=== PATIENT | female | born 1985 | race American Indian/Alaskan Native ===

== ENCOUNTER 2017-09-07 10:42 | Outpatient (CLI) | payer MEDICARE ==
--- NOTE | 2017-09-07 12:46 | Ultrasound Report ---
ULTRASOUND PELVIC COMPLETE ULTRASOUND TRANSVAGINAL HISTORY: Pelvic pain. COMPARISON: None. TECHNIQUE: Transabdominal and transvaginal ultrasound with color doppler interrogation. FINDINGS: Uterus: The uterus is anteverted. The uterus measures 9.1 x 4.4 x 5.8 cm. At least 3 fibroids are identified. The largest fibroid is submucosal in location in the posterior wall measuring 2.6 x 2.0 cm. An intramural fibroid in the anterior wall measures 1.4 x 1.1 cm. An intramural fibroid at the uterine fundus measures 1.8 x 1.4 cm. The cervix is unremarkable. Endometrium: 7.6 mm. There is mild anterior displacement body posterior wall fibroid. Right ovary: 4.0 x 1.9 x 2.6 cm. No focal abnormality. Left ovary: 3.3 x 1.4 x 2.2 cm. No focal abnormality. No pelvic fluid or mass is identified. Normal color doppler interrogation. IMPRESSION: Uterine fibroid disease as described above.
== END 2017-09-07 10:43 | disposition home or self-care (01) ==
LOC: US 10:42
PROVIDERS: ATTEND Obstetrics & Gynecology
DX: D25.1 Intramural leiomyoma of uterus (principal); D25.0 Submucous leiomyoma of uterus
CPT/HCPCS: 76830; 76856

== ENCOUNTER 2017-10-12 08:21 | Day surgery (SDC) | payer MEDICARE ==
[~2017-10-12 08:21] MED LIST: LACTATED RINGERS 1,000 ML IV SCH
--- NOTE | 2017-10-12 09:53 | Short Stay Summary ---
Short Stay Documentation Date of service: 10/12/17 Narrative H&P: Pt is a 32yo BF LMP 10/05/17 presents for a Hysteroscopy and D&C. She was unable to tolerate an endometrial biopsy in the office due to cervical stenosis and uterine fibroids with thickened endometrium. - History Principal diagnosis: Uterine fibroids H&P: obtained from office Past Medical History: hypertension, other (Asthma, CHF) Past Surgical History: , hernia repair, tonsillectomy Social history: no significant social history, single - Allergies and Medications Current Medications: Allergies amoxicillin [Amoxicillin] Allergy (Verified 10/07/17 11:06) Rash codeine Allergy (Verified 10/07/17 11:06) Angioedema latex Allergy (Verified 10/07/17 11:06) Rash Home Medications Medication Instructions Recorded Confirmed Last Taken Type ALBUTEROL Inhaler [Proair] 2 puff IH QID PRN 10/07/17 10/12/17 10/05/17 09:00 History Metoprolol SUCCINATE ER TAB 25 mg PO BID 10/12/17 10/12/17 10/04/17 19:00 History Active Medications Gentamicin Sulfate (Garamycin) 120 mg 1.5 mg/kg (120 mg) IV PREOP MAITE; Protocol Lactated Ringer's (Lactated Ringers) 1,000 mls @ 100 mls/hr IV DIRECT MAITE Clindamycin HCl (Cleocin 600 Mg/50 Ml) 600 mg in 50 mls @ 100 mls/hr IV PREOP NR; Protocol - Physical exam General appearance: no acute distress Integumentary: no rash HEENT: Atraumatic Lungs: Clear to auscultation Breasts: deferred Heart: Regular rate Gastrointestinal: normal Female Genitourinary: deferred Extremities: no ischemia, No edema Neurological: Normal gait, Normal speech - Brief post op/procedure progress note Date of procedure: 10/12/17 Pre-op diagnosis: 1. Menorrhagia 2. Uterine fibroids 3. Cervical stenosis Post-op diagnosis: same Procedure: 1. Hysteroscopy 2. D&C Anesthesia: MAC Findings: An enlarged uterus with stenotic cervix. Large amounts of lush endometrial tissue obtained with D&C. Surgeon: JOHANNA CLEMONS Estimated blood loss: minimal Pathology: list (endometrial curettings) Specimen disposition: to lab Condition: stable - Hospital course Hospital course: Unremarkable. - Disposition Condition at discharge: Good Disposition: DC-01 TO HOME OR SELFCARE - Discharge Diagnoses (1) Menorrhagia Status: Chronic (2) Uterine fibroid Status: Chronic Qualifiers: Uterine leiomyoma location: intramural and submucous Qualified Code(s): D25.1 - Intramural leiomyoma of uterus; D25.0 - Submucous leiomyoma of uterus (3) Cervical stenosis (uterine cervix) Status: Resolved Short Stay Discharge Plan Activity: no restrictions Diet: regular Follow up with: JENA CLEMONS MD [Primary Care Provider] - 7 Days JOHANNA CLEMONS MD [Staff Physician] - 14 Days Prescriptions: Ibuprofen [Motrin] 800 mg PO Q8HR PRN #30 tablet PRN Reason: Pain, Moderate (4-6)
[2017-10-12] MEDS ORDERED: GARAMYCIN IV ONE (10:00)
[2017-10-12] MEDS ORDERED: CLEOCIN 600 MG/50 mL 600 MG/50 ML BAG IV NR (10:00)
[2017-10-12] MEDS ORDERED: ZOFRAN IV PRN (10:09)
[2017-10-12] MEDS ORDERED: NARCAN 0.4 MG/1 ML IV PRN (10:09)
[2017-10-12] MEDS ORDERED: TORADOL IV PRN (10:09)
[2017-10-12] MEDS ORDERED: SUBLIMAZE IV PRN (10:09)
[2017-10-12] MEDS ORDERED: DEMEROL IV PRN (10:09)
--- NOTE | 2017-10-12 10:13 | Anesthesia Consultation ---
Anesthesia Consult and Med Hx Date of service: 10/12/17 - Airway Anesthetic Teeth Evaluation: Good ROM Head & Neck: Adequate Mallampati Class: Class I - Pulmonary Exam CTA: Yes - Cardiac Exam Cardiac Exam: RRR - Pre-Operative Health Status ASA Pre-Surgery Classification: ASA2 Proposed Anesthetic Plan: General - Pre-Anesthesia Comment Pre-Anesthesia Comments: patient smokes 1/2 ppd. drinks one bottle of wine daily. CHF- no limitations. takes metoprolol. Asthma: mild. last used albuterol inhaler 3 months ago - Pulmonary Hx Smoking: Yes Hx Asthma: Yes (last treated 9-10 mos ago) - Cardiovascular System Hx Hypertension: Yes (intermittant) - Central Nervous System Hx Psychiatric Problems: No - Other Systems Hx Alcohol Use: Yes (occas) Hx Cancer: No
--- NOTE | 2017-10-12 10:14 | Anesthesia Day of Surgery ---
Anesthesia Day of Surgery - Day of Surgery Patient Examined: Yes Patient H&P Reviewed: Yes Patient is NPO: Yes Beta Blockers: Yes
[2017-10-12] MEDS ORDERED: PROVENTIL IH NR (10:15)
[2017-10-12] MEDS ORDERED: PROAIR IH NR (10:15)
[2017-10-12 10:26] LABS: Hematocrit 39.1 % (30.3-42.9); Hemoglobin 12.7 gm/dl (10.1-14.3)
[2017-10-12] MEDS ORDERED: SILVER NITRATE TP ONE (10:26)
[2017-10-12] MEDS ORDERED: DIPRIVAN 10 MG/ML IV ONE (10:27)
[2017-10-12] MEDS ORDERED: SUBLIMAZE ONE (10:30)
[2017-10-12] MEDS ORDERED: XYLOCAINE MPF 2% ONE (10:57)
[2017-10-12] MEDS ORDERED: ZOFRAN ONE ×2 (10:57→11:21)
[2017-10-12] MEDS ORDERED: DILAUDID ONE (10:58)
[2017-10-12] MEDS ORDERED: GARAMYCIN/NS 120MG/100ML 120 MG/100 ML BAG IV ONE (11:00)
[2017-10-12] MEDS ORDERED: ZOFRAN IV NR (11:00)
[2017-10-12] MEDS ORDERED: GARAMYCIN 120 MG in NACL 0.9% 100 ML IV ONE (11:00)
[2017-10-12] MEDS ORDERED: VERSED IV NR (11:00)
[2017-10-12] MEDS ORDERED: ROBINUL IV NR (11:00)
[2017-10-12] MEDS ORDERED: NACL 0.9% IR ONE (11:10)
[2017-10-12] MEDS ORDERED: TORADOL ONE (11:21)
--- NOTE | 2017-10-12 11:36 | Operative Report ---
Operative Report Operative Report: PREOPERATIVE DIAGNOSIS: 1. Menorrhagia 2. Uterine fibroids 3. Cervical stenosis POSTOPERATIVE DIAGNOSIS: Same OPERATIVE PROCEDURE: 1. Hysteroscopy 2. Dilatation and curettage. SURGEON: Ken Barksdale MD ANESTHESIA: Gen. mask ANESTHESIOLOGIST: Dr. Ibanez ESTIMATED BLOOD LOSS: Less than 10 mL's FINDINGS: A 10-12 week size uterus with stenotic cervix. Large amount of lush endometrial tissue obtained with D&C. COMPLICATIONS: None COUNTS: Correct x3. PROCEDURE: After the patient was correctly identified, and after general anesthesia was administered, the patient was prepped and draped in the usual sterile fashion and placed in dorsal lithotomy position. First, the bladder was emptied using a straight catheter. Next, a speculum was placed in the vaginal vault and the anterior lip of the cervix was grasped using a single- tooth tenaculum. The cervix was stenotic, and the uterus was sounded to 12 cm. The cervical os was sequentially dilated, and the hysteroscope was introduced into the cervical canal. Visualization of endometrial cavity found lush amount of endometrial tissue,with possible endometrial polyps. The hysteroscope was then removed, sharp curettage was used obtain lush amounts of endometrial tissue which was sent to pathology. After all the endometrial tissue were removed, the procedure was considered complete. All instruments were removed from the vagina. The patient tolerated the procedure well and was transferred to the recovery room in stable condition.
[2017-10-12] MEDS ORDERED: BENADRYL ONE (11:56)
[2017-10-12] MEDS ORDERED: BENADRYL IV ONE (11:56)
[2017-10-12 12:37] VITALS: BP 115/79
--- NOTE | 2017-10-12 14:28 | Post Anesthesia Evaluation ---
- Post Anesthesia Evaluation Patient Participated: Yes Airway Patent: Yes Stable Respiratory Function: Yes Nausea/Vomiting: No Temp > 96.8F: Yes Pain Manageable: Yes Adequeate Hydration: Yes Anesthesia Complications: No
== END 2017-10-12 13:32 | disposition home or self-care (01) ==
LOC: OR 08:21
PROVIDERS: ATTEND Obstetrics & Gynecology
DX: D25.9 Leiomyoma of uterus, unspecified (principal); N88.2 Stricture and stenosis of cervix uteri; F17.200 Nicotine dependence, unspecified, uncomplicated; J45.909 Unspecified asthma, uncomplicated; I10 Essential (primary) hypertension; F17.210 Nicotine dependence, cigarettes, uncomplicated
CPT/HCPCS: 36415; 58558; 81025; 85014; 85018; 88305; A4217; J1170; J1200; J1580; J1885; J2175; J2405; J2704; J3010; J7120

== ENCOUNTER 2017-10-17 15:52 | Emergency (ER) | payer MEDICARE ==
[2017-10-17] MEDS ORDERED: NACL 0.9% 1000 ML 1,000 ML IV ONE ×2 (16:02→16:46)
[2017-10-17 16:28] LABS: Basophils % (Auto) 0.6 % (0.0-1.8); Eosinophils # (Auto) 0.1 K/mm3 (0.0-0.4); Eosinophils % (Auto) 0.9 % (0.0-4.3); Hemoglobin 13.9 gm/dl (10.1-14.3); Lymphocytes # (Auto) 2.7 K/mm3 (1.2-5.4); Lymphocytes % (Auto) 47.9 % (13.4-35.0); Mean Corpuscular HGB Conc 32 % (30-34); Mean Corpuscular Volume 80 fl (79-97); Monocytes # (Auto) 0.5 K/mm3 (0.0-0.8); Monocytes % (Auto) 8.5 % (0.0-7.3); Platelet Count 304 K/mm3 (140-440); Red Blood Count 5.39 M/mm3 (3.65-5.03); Red Cell Distribution Width 14.2 % (13.2-15.2)
[2017-10-17 16:29] LABS: INR 0.93 (0.87-1.13)
[2017-10-17 16:30] LABS: Partial Thromboplastin Time 30.7 Sec. (24.2-36.6)
[2017-10-17 16:33] LABS: Alanine Aminotransferase 13 units/L (7-56); Albumin 4.2 g/dL (3.9-5); BUN/Creatinine Ratio 14; Blood Urea Nitrogen 7 mg/dL (7-17); Calcium 9.2 mg/dL (8.4-10.2); Hemolysis Index 4; Lipase 17 units/L (13-60)
[2017-10-17 16:34] LABS: Mean Corpuscular Hemoglobin 26 pg (28-32)
[2017-10-17] MEDS ORDERED: STADOL IV PRN (16:44)
--- NOTE | 2017-10-17 16:53 | Emergency Department Report ---
ED General Adult HPI - General Chief complaint: Pain General Stated complaint: LEFT GROIN SWELLING S/P D&C Time Seen by Provider: 10/17/17 16:32 Source: patient Mode of arrival: Ambulatory Limitations: No Limitations - History of Present Illness Initial comments: 32-year-old woman is one-week status post hysteroscopy for resection of uterine leiomyomata, and presents today with history of mild recurrent bleeding, but significant abdominal pain, which has been progressive since a couple of days after surgery, worse in the left lower quadrant. She has not had any fever or chills or diaphoresis, but pain and distention is felt throughout the abdomen, and she is having some secondary discomfort in her chest, which is worse with breathing, which feels somewhat restricted. Patient's bleeding initially stopped for a day or so after the initial procedure , but then again recurring, at about a rate of a pad per day, and has increased about 2 pads yesterday. She has not had any purulence, she has no difficulty urinating, and again no fever chills or diaphoresis. Onset/Timin -: days(s), week(s) Location: abdomen, pelvis Radiation: abdomen Quality: aching, constant Consistency: constant Improves with: other (intermittent partial relief with NSAIDs) Worsens with: movement Associated Symptoms: chest pain Treatments Prior to Arrival: NSAID - Related Data Home Medications Medication Instructions Recorded Confirmed Last Taken ALBUTEROL Inhaler [Proair] 2 puff IH QID PRN 10/07/17 10/12/17 10/05/17 09:00 Metoprolol SUCCINATE ER TAB 25 mg PO BID 10/12/17 10/12/17 10/04/17 19:00 Previous Rx's Medication Instructions Recorded Last Taken Type Ibuprofen [Motrin] 800 mg PO Q8HR PRN #30 tablet 10/12/17 Unknown Rx Ondansetron [Zofran ODT TAB] 8 mg PO Q8HR #10 tab.rapdis 10/18/17 Unknown Rx Oxycodone HCl/Acetaminophen 1 each PO Q6HR PRN #20 tablet 10/18/17 Unknown Rx [Percocet 10/325 mg] Allergies Allergy/AdvReac Type Severity Reaction Status Date / Time amoxicillin [Amoxicillin] Allergy Rash Verified 10/07/17 11:06 codeine Allergy Angioedema Verified 10/07/17 11:06 latex Allergy Rash Verified 10/07/17 11:06 ED Review of Systems ROS: Stated complaint: LEFT GROIN SWELLING S/P D&C Other details as noted in HPI Constitutional: denies: chills, fever Eyes: denies: eye pain, eye discharge, vision change ENT: denies: ear pain, throat pain Respiratory: denies: cough, shortness of breath Cardiovascular: chest pain (sharp, anterior, costochondral) Endocrine: no symptoms reported Gastrointestinal: abdominal pain, nausea. denies: constipation Genitourinary: other (vaginal bleeding, one to 2 pads per day). denies: urgency , dysuria Musculoskeletal: back pain Skin: denies: rash, lesions Neurological: denies: headache, weakness, paresthesias Psychiatric: denies: anxiety, depression ED Past Medical Hx - Past Medical History Previous Medical History?: Yes Hx Hypertension: Yes (intermittant) Hx Congestive Heart Failure: Yes Hx GERD: Yes Hx Asthma: Yes (last treated 9-10 mos ago) Additional medical history: cardiomyopathy - Surgical History Past Surgical History?: Yes Hx Appendectomy: Yes Additional Surgical History: c section, abd hernia repair - Social History Smoking Status: Current Every Day Smoker Substance Use Type: Alcohol, Prescribed - Medications Home Medications: Home Medications Medication Instructions Recorded Confirmed Last Taken Type ALBUTEROL Inhaler [Proair] 2 puff IH QID PRN 10/07/17 10/12/17 10/05/17 09:00 History Ibuprofen [Motrin] 800 mg PO Q8HR PRN #30 tablet 10/12/17 Unknown Rx Metoprolol SUCCINATE ER TAB 25 mg PO BID 10/12/17 10/12/17 10/04/17 19:00 History Ondansetron [Zofran ODT TAB] 8 mg PO Q8HR #10 tab.rapdis 10/18/17 Unknown Rx Oxycodone HCl/Acetaminophen 1 each PO Q6HR PRN #20 tablet 10/18/17 Unknown Rx [Percocet 10/325 mg] ED Physical Exam - General Limitations: No Limitations General appearance: alert, in distress - Eye Eye exam: Present: normal appearance, PERRL, EOMI - ENT ENT exam: Present: normal exam - Neck Neck exam: Present: normal inspection - Respiratory Respiratory exam: Present: chest wall tenderness (costochondral tenderness with secondary pectoralis muscle, left greater than right) - Cardiovascular Cardiovascular Exam: Present: tachycardia - GI/Abdominal GI/Abdominal exam: Present: distended (moderate), tenderness (moderate), guarding (moderate). Absent: rebound - Rectal Rectal exam: Present: deferred - Extremities Exam Extremities exam: Present: normal inspection - Back Exam Back exam: Present: tenderness (minimal lumbosacral) - Neurological Exam Neurological exam: Present: alert, oriented X3 - Psychiatric Psychiatric exam: Present: normal affect, normal mood ED Course Vital Signs 10/17/17 10/17/17 10/17/17 15:56 16:44 16:53 Temperature 98.2 F 98.4 F Pulse Rate 143 H 114 H Respiratory 22 20 10 L Rate Blood Pressure 152/92 132/85 O2 Sat by Pulse 100 99 100 Oximetry 10/17/17 10/17/17 10/17/17 16:55 16:57 16:59 Temperature Pulse Rate 115 H 115 H 114 H Respiratory 15 25 H 18 Rate Blood Pressure 132/85 132/85 132/85 O2 Sat by Pulse 99 99 99 Oximetry 10/17/17 10/17/17 10/17/17 17:01 17:02 17:27 Temperature Pulse Rate 112 H 101 H Respiratory 20 18 Rate Blood Pressure 109/70 109/70 109/70 O2 Sat by Pulse 98 98 98 Oximetry 10/17/17 10/17/17 10/17/17 17:29 17:30 17:33 Temperature Pulse Rate 103 H 102 H 100 H Respiratory 18 12 14 Rate Blood Pressure 109/70 142/94 142/94 O2 Sat by Pulse 98 98 100 Oximetry 10/17/17 10/17/17 10/17/17 17:35 17:37 17:39 Temperature Pulse Rate 107 H 109 H 100 H Respiratory 20 26 H 19 Rate Blood Pressure 142/94 142/94 142/94 O2 Sat by Pulse 100 99 99 Oximetry 10/17/17 10/17/17 10/17/17 17:41 17:43 17:45 Temperature Pulse Rate 100 H 101 H 102 H Respiratory 19 21 16 Rate Blood Pressure 142/94 142/94 142/94 O2 Sat by Pulse 99 99 99 Oximetry 10/17/17 10/17/17 10/17/17 17:46 17:49 17:51 Temperature Pulse Rate 106 H 104 H 102 H Respiratory 13 17 16 Rate Blood Pressure 141/75 141/75 141/75 O2 Sat by Pulse 99 99 100 Oximetry 10/17/17 10/17/17 10/17/17 17:53 17:54 18:25 Temperature Pulse Rate 103 H 105 H 92 H Respiratory 16 13 Rate Blood Pressure 141/75 141/75 141/75 O2 Sat by Pulse 100 99 Oximetry 10/17/17 10/17/17 10/17/17 18:27 18:29 18:30 Temperature Pulse Rate 89 95 H 95 H Respiratory 22 25 H 24 Rate Blood Pressure 141/75 141/75 138/83 O2 Sat by Pulse 99 98 99 Oximetry 10/17/17 10/17/17 10/17/17 18:33 18:35 18:37 Temperature Pulse Rate 94 H 98 H 96 H Respiratory 24 18 17 Rate Blood Pressure 138/83 138/83 138/83 O2 Sat by Pulse 99 99 98 Oximetry 10/17/17 10/17/17 10/17/17 18:39 18:41 18:43 Temperature Pulse Rate 94 H 95 H 103 H Respiratory 11 L 14 12 Rate Blood Pressure 138/83 138/83 138/83 O2 Sat by Pulse 97 98 98 Oximetry 10/17/17 10/17/17 10/17/17 18:45 18:47 18:49 Temperature Pulse Rate Respiratory 13 24 18 Rate Blood Pressure 126/68 126/68 126/68 O2 Sat by Pulse 98 97 98 Oximetry 10/17/17 10/17/17 10/17/17 18:51 18:53 18:55 Temperature Pulse Rate Respiratory 13 12 22 Rate Blood Pressure 126/68 126/68 126/68 O2 Sat by Pulse 98 99 96 Oximetry 10/17/17 10/17/17 10/17/17 18:57 18:59 19:00 Temperature Pulse Rate Respiratory 23 21 17 Rate Blood Pressure 126/68 126/68 125/78 O2 Sat by Pulse 97 96 98 Oximetry 10/17/17 10/17/17 10/17/17 19:03 19:05 19:07 Temperature Pulse Rate Respiratory 20 18 13 Rate Blood Pressure 125/78 125/78 125/78 O2 Sat by Pulse 98 98 100 Oximetry 10/17/17 10/17/17 10/17/17 19:09 19:11 19:13 Temperature Pulse Rate Respiratory 20 14 11 L Rate Blood Pressure 125/78 125/78 125/78 O2 Sat by Pulse 98 97 99 Oximetry 10/17/17 10/17/17 10/17/17 19:15 19:17 19:19 Temperature Pulse Rate Respiratory 14 17 13 Rate Blood Pressure 134/81 134/81 134/81 O2 Sat by Pulse 100 99 99 Oximetry 10/17/17 10/17/17 10/17/17 19:21 19:25 19:30 Temperature Pulse Rate Respiratory 18 9 L 15 Rate Blood Pressure 134/81 134/81 132/82 O2 Sat by Pulse 98 96 100 Oximetry 10/17/17 10/17/17 10/17/17 19:35 19:41 19:45 Temperature Pulse Rate Respiratory 10 L 15 21 Rate Blood Pressure 132/82 132/82 146/95 O2 Sat by Pulse 99 100 99 Oximetry 10/17/17 10/17/17 10/17/17 19:51 19:55 20:00 Temperature Pulse Rate Respiratory 12 12 17 Rate Blood Pressure 146/95 146/95 151/96 O2 Sat by Pulse 100 100 98 Oximetry 10/17/17 10/17/17 10/17/17 20:05 20:11 20:15 Temperature Pulse Rate Respiratory 19 17 13 Rate Blood Pressure 151/96 151/96 154/101 O2 Sat by Pulse 100 99 100 Oximetry 10/17/17 10/17/17 10/17/17 20:21 20:25 20:30 Temperature Pulse Rate Respiratory 10 L 16 17 Rate Blood Pressure 154/101 154/101 144/102 O2 Sat by Pulse 99 99 99 Oximetry 10/17/17 10/17/17 10/17/17 20:35 20:41 20:45 Temperature Pulse Rate Respiratory 13 16 14 Rate Blood Pressure 144/102 144/102 145/93 O2 Sat by Pulse 99 98 100 Oximetry 10/17/17 10/17/17 10/17/17 20:51 21:07 21:11 Temperature Pulse Rate Respiratory 12 10 L 18 Rate Blood Pressure 145/93 145/93 145/93 O2 Sat by Pulse 99 100 98 Oximetry 10/17/17 10/17/17 10/17/17 21:15 21:21 21:25 Temperature Pulse Rate Respiratory 12 18 15 Rate Blood Pressure 157/88 157/88 157/88 O2 Sat by Pulse 100 96 97 Oximetry 10/17/17 10/17/17 10/17/17 21:31 21:35 21:41 Temperature Pulse Rate Respiratory 13 8 L 18 Rate Blood Pressure 130/72 130/72 130/72 O2 Sat by Pulse 99 100 98 Oximetry 10/17/17 10/17/17 10/17/17 21:45 21:51 21:55 Temperature Pulse Rate Respiratory 9 L 17 15 Rate Blood Pressure 140/71 140/71 140/71 O2 Sat by Pulse 99 97 96 Oximetry 10/17/17 10/17/17 10/17/17 22:00 22:05 22:11 Temperature Pulse Rate Respiratory 18 13 16 Rate Blood Pressure 133/76 133/76 133/76 O2 Sat by Pulse 98 99 99 Oximetry 10/17/17 10/17/17 10/17/17 22:15 22:21 22:25 Temperature Pulse Rate Respiratory 24 20 10 L Rate Blood Pressure 133/76 133/76 133/76 O2 Sat by Pulse 97 99 97 Oximetry 10/17/17 10/17/17 10/17/17 22:31 22:35 22:41 Temperature Pulse Rate Respiratory 15 12 16 Rate Blood Pressure 133/76 133/76 133/76 O2 Sat by Pulse 97 99 95 Oximetry 10/17/17 10/17/17 10/17/17 22:45 22:51 22:55 Temperature Pulse Rate Respiratory 14 16 12 Rate Blood Pressure 118/82 118/82 118/82 O2 Sat by Pulse 98 98 95 Oximetry 10/17/17 10/17/17 10/17/17 23:00 23:05 23:09 Temperature Pulse Rate Respiratory 13 17 11 L Rate Blood Pressure 128/76 128/76 128/76 O2 Sat by Pulse 99 98 98 Oximetry 10/17/17 10/17/17 10/17/17 23:11 23:15 23:21 Temperature Pulse Rate Respiratory 16 15 13 Rate Blood Pressure 128/76 128/76 141/84 O2 Sat by Pulse 97 98 99 Oximetry 10/17/17 10/17/17 10/17/17 23:25 23:30 23:35 Temperature Pulse Rate Respiratory 17 14 17 Rate Blood Pressure 141/84 143/80 143/80 O2 Sat by Pulse 96 98 99 Oximetry 10/17/17 10/17/17 10/17/17 23:41 23:45 23:51 Temperature Pulse Rate Respiratory 12 16 15 Rate Blood Pressure 143/80 143/80 129/60 O2 Sat by Pulse 98 98 99 Oximetry 10/17/17 10/18/17 10/18/17 23:55 00:01 00:05 Temperature Pulse Rate Respiratory 14 18 14 Rate Blood Pressure 129/60 121/73 121/73 O2 Sat by Pulse 99 97 97 Oximetry 10/18/17 10/18/17 10/18/17 00:11 00:15 00:21 Temperature Pulse Rate Respiratory 15 13 15 Rate Blood Pressure 121/73 121/73 121/73 O2 Sat by Pulse 96 97 99 Oximetry 10/18/17 10/18/17 00:25 00:30 Temperature Pulse Rate Respiratory 14 13 Rate Blood Pressure 121/73 129/93 O2 Sat by Pulse 98 99 Oximetry - Reevaluation(s) Reevaluation #1: 10/18/17 01:54 Patient concerned after multiple evaluations, including pelvic and transvaginal ultrasound, lab work surgeon for inflammation, urinalysis, and CT scanning of the abdomen and pelvis with IV contrast, none of which showed any major pathology, signs of infection, or signs of bleeding. Patient did have signs of perhaps mild adynamic ileus, but was nonobstructive. Findings were discussed with it architect garage construction equipment mechanic, who felt that this was relatively benign examination , and the patient pain can be further evaluated in the office. Patient is concerned about continuing pain, and on repeat examination at this time, I still find the patient's abdomen is essentially soft, but she has bilateral tenderness across her lower abdomen, worse on the left side than on the right, without rebound. Bowel sounds are active. Laboratory results and radiology results were reviewed, and no additional pathology appears evident. Patient is stable for discharge, will be discharged with pain medication and nausea medication, to follow later in the office this morning when the office opens up. - Consultations Consultation #1: 10/18/17 00:25 Patient's findings discussed with on-call it architect, Dr. Gonzalez, after all lab results were back and as well as CT scan and urinalysis, fills with benign findings, the patient is stable to go home with analgesia, but for early follow- up with the clinic in the morning, and to call the morning for expedited follow- up. Findings discussed with patient, who reports that she drove herself here, and will contact a friend to come drive her home, this patient has currently been medicated with narcotics. ED Medical Decision Making - Lab Data Result diagrams: 10/17/17 16:07 10/17/17 16:07 - EKG Data -: EKG Interpreted by Me (nonspecific tracing, sinus tachycardia, prolonged QT interval of 507 ms cor) EKG shows normal: sinus rhythm Rate: tachycardia - EKG Data When compared to previous EKG there are: previous EKG unavailable - Radiology Data Radiology results: report reviewed CT scan shows adynamic ileus with small nonobstructed fluid-filled bowel loops, but no other significant finding. Pelvic and transvaginal ultrasound again showed pre-existing leiomyomata, but no significant blood or fluid accumulation, and no intra-abdominal pelvic fluid. Left ovarian follicular changes were noted . - Medical Decision Making Patient has unexplained left lower abdominal pain progressive for the past 5 or 6 days since she has had hysteroscopy. Ultrasound examination, laboratory evaluation, CT evaluation, and urinalysis are all normal, and source is not known. Since patient is stable, it architect feels patient is stable for discharge, but recommends early follow-up in the clinic in this coming morning. Patient will be discharged home to the care of her friend medicated for discomfort, and will be discharged with analgesia prescriptions. - Differential Diagnosis persistent vaginal bleeding, intra-abdominal hemorrhage, endometritis Critical Care Time: No Critical care attestation.: If time is entered above; I have spent that time in minutes in the direct care of this critically ill patient, excluding procedure time. ED Disposition Clinical Impression: Status post hysteroscopy Uterine fibroid Qualifiers: Uterine leiomyoma location: intramural and submucous Qualified Code(s): D25.1 - Intramural leiomyoma of uterus Abdominal pain Qualifiers: Abdominal location: left lower quadrant Qualified Code(s): R10.32 - Left lower quadrant pain Disposition: DC-01 TO HOME OR SELFCARE Is pt being admited?: No Does the pt Need Aspirin: No Condition: Stable Instructions: Abdominal Pain (ED) Additional Instructions: We have spoken with on-call it architect phil, and he recommends discharge home tonight, with pain medication, and we have given a dose of medicine before your discharge. Their recommendation is to follow-up with Dr. Barksdale in the office this coming morning when the office opens up. Give the office a call first thing, told him that you were seen in the emergency department, and that arrangements should be made for you to be seen by your doctor today. We have given a prescription for medicine for additional pain, wanted to rest quietly, drink plenty of fluids, and he may also take additional medication for nausea as well. Prescriptions: Ondansetron [Zofran ODT TAB] 8 mg PO Q8HR #10 tab.rapdis Oxycodone HCl/Acetaminophen [Percocet 10/325 mg] 1 each PO Q6HR PRN #20 tablet PRN Reason: Pain Referrals: JENA BARKSDALE MD [Primary Care Provider] - 3-5 Days JOHANNA BARKSDALE MD [Staff Physician] - 3-5 Days Time of Disposition: 00:15
[2017-10-17] MEDS ORDERED: PHENERGAN PO ONE (17:00)
[2017-10-17] MEDS ORDERED: ZOFRAN IV ONE ×2 (17:31→21:20)
[2017-10-17] MEDS: MORPHINE IV PRN ×5 (18:01→21:23)
--- NOTE | 2017-10-17 19:25 | Ultrasound Report ---
FINAL REPORT EXAM: US PELVIC COMPLETE HISTORY: abd pain, s/p hysteroscopy TECHNIQUE: Transabdominal and transvaginal sonography of the pelvis. Duplex Doppler performed. PRIORS: None. FINDINGS: The uterus measures 9.3 x 4.5 x 5.9 cm, has heterogeneous echotexture and contains hypoechoic fibroids x3, largest noted in posterior corpus region measuring 3.5 x 2.7 x 3.4 cm. Next largest fibroid noted in fundal region measuring 1.8 x 1.1 x 1.5 cm. Additional fibroid noted in anterior corpus region measuring 1.3 x 1.1 x 2.1 cm. Small hyperechoic focus and possible calcification noted in mid posterior corpus subjacent to endometrium. The endometrial stripe is within normal limits and measures 6 mm in AP dimension. The right ovary measures 3.7 x 2.1 x 2.3 cm and is grossly unremarkable. The left ovary measures 4.0 x 2.2 x 1.8 cm, demonstrates probable follicular change measuring 2 cm and is grossly unremarkable. Duplex Doppler shows appropriate blood flow present in the ovaries bilaterally. No adnexal masses or significant free peritoneal fluid. IMPRESSION: 1. Leiomyomatous change in the uterus. 2. Findings compatible with follicular change in the left ovary. 3. Otherwise, unremarkable.
--- NOTE | 2017-10-17 19:28 | Ultrasound Report ---
FINAL REPORT EXAM: US TRANSVAGINAL HISTORY: abd pain, s/p hysteroscopy TECHNIQUE: Transabdominal and transvaginal sonography of the pelvis. PRIORS: None. FINDINGS: The uterus measures 9.3 x 4.5 x 5.9 cm, has heterogeneous echotexture and contains hypoechoic fibroids x3, largest noted in posterior corpus region measuring 3.5 x 2.7 x 3.4 cm. Next largest fibroid noted in fundal region measuring 1.8 x 1.1 x 1.5 cm. Additional fibroid noted in anterior corpus region measuring 1.3 x 1.1 x 2.1 cm. Small hyperechoic focus and possible calcification noted in mid posterior corpus subjacent to endometrium. The endometrial stripe is within normal limits and measures 6 mm in AP dimension. The right ovary measures 3.7 x 2.1 x 2.3 cm and is grossly unremarkable. The left ovary measures 4.0 x 2.2 x 1.8 cm, demonstrates probable follicular change measuring 2 cm and is grossly unremarkable. Duplex Doppler shows appropriate blood flow present in the ovaries bilaterally. No adnexal masses or significant free peritoneal fluid. IMPRESSION: 1. Leiomyomatous change in the uterus. 2. Findings compatible with follicular change in the left ovary. 3. Otherwise, unremarkable.
--- NOTE | 2017-10-17 21:34 | Cat Scan Report ---
FINAL REPORT EXAM: CT ABDOMEN PELVIS W CON HISTORY: LLQ pain, recent hysteroscopy, stable pelvic US TECHNIQUE: Spiral CT scanning of the abdomen and pelvis after the uneventful administration of IV contrast. Multiplanar reformations. 100 mL Omnipaque IV. PRIORS: None. FINDINGS: Abdomen: Visualized lung bases show mild, dependent atelectasis bilaterally. No radiopaque gallstones. Liver without significant abnormality. Spleen without significant abnormality. Pancreas without significant abnormality. Kidneys without significant abnormality. Adrenal glands without significant abnormality. Pelvis: Multiple loops of prominent small bowel and colon containing gas and fluid without discrete transition point. Mild diverticular change in the proximal descending colon. Appendix within normal limits. Trace amount of nonspecific, free fluid in the pelvis. No discrete abscess. Abdominal aorta non-aneurysmal. Somewhat lobular uterine margins suggesting leiomyomatous change. Ovoid, cystic focus in left ovary measuring approximately 2 cm. IMPRESSION: 1. Nonspecific bowel gas pattern suggesting adynamic ileus, which may be associated with nonspecific postinflammatory change, including diarrhea or enteritis. Correlate clinically. 2. Possible physiologic cystic change in the left ovary, and sequelae of ovarian follicle or cyst rupture.
[2017-10-17 23:54] LABS: Bacteria,Urine 1+ /HPF (Negative); Bilirubin,Urine NEG (Negative); Blood,Urine MOD (Negative); Color,Urine Yellow (Yellow); Mucus,Urine FEW /HPF; Protein,Urine <15 mg/dL mg/dL (Negative); Urobilinogen,Urine < 2.0 mg/dL (<2.0); WBC,Urine < 1.0 /HPF (0.0-6.0)
[2017-10-18] MEDS ORDERED: ZOFRAN ONE (01:30)
[2017-10-18] MEDS: MORPHINE IV PRN (01:31)
[2017-10-18] MEDS ORDERED: ZOFRAN IV ONE (02:13)
[2017-10-18 02:22] VITALS: BP 133/90
== END 2017-10-18 02:24 | disposition home or self-care (01) ==
LOC: ED 15:52
DX: N99.820 Postprocedural hemorrhage of a genitourinary system organ or structure following a genitourinary system procedure (principal); D25.1 Intramural leiomyoma of uterus; R10.32 Left lower quadrant pain; R07.89 Other chest pain; I10 Essential (primary) hypertension; I11.0 Hypertensive heart disease with heart failure; I50.9 Heart failure, unspecified; K21.9 Gastro-esophageal reflux disease without esophagitis; J45.909 Unspecified asthma, uncomplicated; F17.200 Nicotine dependence, unspecified, uncomplicated; Z98.890 Other specified postprocedural states; Z90.49 Acquired absence of other specified parts of digestive tract; Z88.1 Allergy status to other antibiotic agents; Z88.5 Allergy status to narcotic agent; Z91.040 Latex allergy status
CPT/HCPCS: 36415; 74177; 76830; 76856; 80053; 81001; 83690; 85025; 85610; 85730; 86850; 86900; 86901; 93005; 93010; 96361; 96374; 96375; 96376; 99284; J2270; J2405; J7030; Q9967; J0595; Q0169

== ENCOUNTER 2017-12-08 02:58 | Emergency (ER) | payer MEDICARE ==
[2017-12-08 03:21] VITALS: BP 128/71
[2017-12-08 03:54] LABS: Basophils # (Auto) 0.1 K/mm3 (0.0-0.1); Basophils % (Auto) 1.2 % (0.0-1.8); Eosinophils # (Auto) 0.1 K/mm3 (0.0-0.4); Eosinophils % (Auto) 2.4 % (0.0-4.3); Hematocrit 37.6 % (30.3-42.9); Lymphocytes # (Auto) 2.1 K/mm3 (1.2-5.4); Lymphocytes % (Auto) 44.3 % (13.4-35.0); Mean Corpuscular HGB Conc 32 % (30-34); Mean Corpuscular Hemoglobin 26 pg (28-32); Mean Corpuscular Volume 81 fl (79-97); Monocytes # (Auto) 0.6 K/mm3 (0.0-0.8); Monocytes % (Auto) 12.4 % (0.0-7.3); Platelet Count 271 K/mm3 (140-440); Red Blood Count 4.62 M/mm3 (3.65-5.03); Red Cell Distribution Width 14.7 % (13.2-15.2)
[2017-12-08 04:05] LABS: Bilirubin,Urine NEG (Negative); Blood,Urine SM (Negative); Color,Urine Yellow (Yellow); Mucus,Urine FEW /HPF; Protein,Urine <15 mg/dL mg/dL (Negative); Urobilinogen,Urine < 2.0 mg/dL (<2.0)
[2017-12-08 04:12] LABS: Alanine Aminotransferase 11 units/L (7-56); Albumin 3.9 g/dL (3.9-5); BUN/Creatinine Ratio 22; Blood Urea Nitrogen 11 mg/dL (7-17); Calcium 8.5 mg/dL (8.4-10.2); Hemolysis Index 3
[2017-12-08 04:17] LABS: HCG Qualitative,Urine Positive (Negative)
== END 2017-12-08 08:32 | disposition left against medical advice (07) ==
LOC: ED 02:58
DX: O26.891 Other specified pregnancy related conditions, first trimester (principal); R10.9 Unspecified abdominal pain; J45.909 Unspecified asthma, uncomplicated; K21.9 Gastro-esophageal reflux disease without esophagitis; I10 Essential (primary) hypertension; F17.200 Nicotine dependence, unspecified, uncomplicated; Z90.49 Acquired absence of other specified parts of digestive tract; Z88.5 Allergy status to narcotic agent; Z91.040 Latex allergy status; Z88.1 Allergy status to other antibiotic agents; Z3A.01 Less than 8 weeks gestation of pregnancy; Z53.21 Procedure and treatment not carried out due to patient leaving prior to being seen by health care provider
CPT/HCPCS: 36415; 80053; 81001; 81025; 85025

== ENCOUNTER 2018-02-18 13:59 | Emergency (ER) | payer MEDICARE ==
[2018-02-18 14:58] VITALS: BP 113/50
[2018-02-18 15:53] LABS: HCG Qualitative,Urine Positive (Negative)
[2018-02-18 15:56] LABS: Bilirubin,Urine NEG (Negative); Blood,Urine SM (Negative); Color,Urine Yellow (Yellow); Mucus,Urine FEW /HPF; Protein,Urine <15 mg/dL mg/dL (Negative); Urobilinogen,Urine < 2.0 mg/dL (<2.0)
== END 2018-02-18 18:13 ==
LOC: ED 13:59
DX: R10.2 Pelvic and perineal pain (principal); Z53.21 Procedure and treatment not carried out due to patient leaving prior to being seen by health care provider
CPT/HCPCS: 81001; 81025

== ENCOUNTER 2018-06-19 05:18 | Outpatient (CLI) | payer MEDICARE ==
[2018-06-19 06:26] LABS: Bacteria,Urine 1+ /HPF (Negative); Bilirubin,Urine NEG (Negative); Blood,Urine MOD (Negative); Color,Urine Straw (Yellow); Mucus,Urine FEW /HPF; Protein,Urine <15 mg/dL mg/dL (Negative); Urobilinogen,Urine < 2.0 mg/dL (<2.0)
[2018-06-19 07:45] VITALS: BP 139/67
--- NOTE | 2018-06-19 21:10 | Event Note ---
Date: 06/19/18 Triage Note 06/19/18: 33 year old at 33 weeks, 3 days gestation presented to L&D triage complaining of cough, chest pain, wheezing, and back pain. Patient is a patient of Dr. Barksdale at [facility] and she states she has been receiving regular care. She states she is also being followed by [facility]. Patient denies sick contacts. She reports body aches but denies fever or chills. Patient reports active movement. She denies falls or abdominal trauma. She denies VB or LOF. Patient is ill appearing, mildly tachycardic. NST reactive, category 1. No contractions noted. Patient sent to ED in wheelchair to be evaluated for chest pain, wheezing, tachycardia and to have flu swab done. Advised patient to follow up with Dr. Barksdale this week.
== END 2018-06-19 09:09 | disposition home or self-care (01) ==
LOC: TRG 05:18
PROVIDERS: ATTEND Obstetrics & Gynecology
DX: O26.893 Other specified pregnancy related conditions, third trimester (principal); O99.513 Diseases of the respiratory system complicating pregnancy, third trimester; J45.909 Unspecified asthma, uncomplicated; R10.9 Unspecified abdominal pain; R07.9 Chest pain, unspecified; Z90.89 Acquired absence of other organs; Z90.49 Acquired absence of other specified parts of digestive tract; Z87.891 Personal history of nicotine dependence; Z3A.33 33 weeks gestation of pregnancy
CPT/HCPCS: 81001; 87086

== ENCOUNTER 2018-07-21 09:57 | Inpatient (IN) | payer MEDICARE ==
[2018-07-21] MEDS ORDERED: BICITRA PO ONE (11:01)
[2018-07-21] MEDS ORDERED: REGLAN IV ONE (11:01)
[2018-07-21] MEDS ORDERED: PEPCID IV ONE (11:01)
--- NOTE | 2018-07-21 11:03 | History and Physical Report ---
History of Present Illness Date of examination: 07/21/18 Date of admission: 07/21/18 09:57 Chief complaint: Scheduled C Section History of present illness: Pt is a 33yo BF EDC 08/04/18; EGA 38 0/7 weeks presents for Repeat C Section per [facility] due to CHF. She received care at [facility] since 8 weeks and co-managed by [facility] for Previous C Section, Morbid Obesity and CHF (followed by Cardiology). records are available and GBS is Negative. Past History Past Medical History: asthma, heart disease (CHF), hypertension, GERD Past Surgical History: tonsillectomy, section, other (hernia repair) Family/Genetic History: heart disease, hypertension, stroke Social history: no significant social history, single - Obstetrical History Expected Date of Delivery: 08/04/18 Actual Gestation: 38 Week(s) 0 Day(s) : 2 Medications and Allergies Allergies Allergy/AdvReac Type Severity Reaction Status Date / Time amoxicillin [Amoxicillin] Allergy Rash Verified 06/19/18 10:16 codeine Allergy Angioedema Verified 06/19/18 10:16 latex Allergy Rash Verified 06/19/18 10:16 Home Medications Medication Instructions Recorded Confirmed Last Taken Type Metoprolol SUCCINATE ER TAB 25 mg PO BID 10/12/17 07/21/18 07/19/18 09:00 History 1 Ferrous Sulfate [Feosol 325 MG tab] 325 mg PO BID #60 tablet 07/21/18 Unknown Rx HYDROcodone/APAP 5-325 [[place] 1 each PO Q6HR PRN #30 tablet 07/21/18 Unknown Rx 5/325] Ibuprofen [Motrin] 800 mg PO Q8HR PRN #30 tablet 07/21/18 Unknown Rx Pnv No.95/Ferrous Fum/Folic AC 1 each PO DAILY #30 tablet 07/21/18 Unknown Rx [Prenavite Tablet] Vit-Fe Fumar-FA [ 1 tab PO QDAY 07/21/18 07/21/18 07/20/18 23:00 History Vitamin] Review of Systems All systems: negative - Physical Exam Breasts: Positive: deferred Cardiovascular: Regular rate Lungs: Positive: Clear to auscultation Abdomen: Positive: normal appearance Genitourinary (Female): Positive: normal external genitalia Uterus: Positive: enlarged Extremities: Positive: normal - Obstetrical FHR: category 1 Uterine Contraction Monitor Mode: External Uterine Contraction Pattern: Absent Results Result Diagrams: 07/21/18 11:30 All other labs normal. Assessment and Plan - Patient Problems (1) 38 weeks gestation of Onset Date: 07/21/18 Current Visit: Yes Status: Acute (2) CHF (congestive heart failure) Onset Date: 07/21/18 Current Visit: Yes Status: Acute Qualifiers: Heart failure chronicity: chronic (3) Chronic hypertension Onset Date: 07/21/18 Current Visit: Yes Status: Chronic (4) Uterine fibroid in Onset Date: 07/21/18 Current Visit: Yes Status: Chronic
[2018-07-21] MEDS ORDERED: GENTAMICIN IV SCH (11:15)
[2018-07-21] MEDS ORDERED: NACL 0.9% IV SCH (11:15)
[2018-07-21] MEDS ORDERED: GENTAMICIN 120 MG in NACL 0.9% 100 ML IV SCH (11:18)
--- NOTE | 2018-07-21 11:39 | Anesthesia Day of Surgery ---
Anesthesia Day of Surgery - Day of Surgery Patient Examined: Yes Patient H&P Reviewed: Yes Patient is NPO: Yes Beta Blockers: No
[2018-07-21] MEDS: LACTATED RINGERS 1,000 ML IV SCH ×2 (11:42→12:12)
--- NOTE | 2018-07-21 11:44 | Anesthesia Consultation ---
Anesthesia Consult and Med Hx Date of service: 07/21/18 - Airway Anesthetic Teeth Evaluation: Good ROM Head & Neck: Adequate Mental/Hyoid Distance: Adequate Mallampati Class: Class III Intubation Access Assessment: Good - Pulmonary Exam CTA: Yes - Cardiac Exam Cardiac Exam: No Murmur Anesthetic Concerns: ASA II hostory of CHF, HTN and Asthma - Pre-Operative Health Status ASA Pre-Surgery Classification: ASA3 Proposed Anesthetic Plan: Spinal - Pulmonary Hx Smoking: Yes Hx Asthma: Yes (pt used neb machine earlier today) SOB: No COPD: No Home Oxygen Therapy: No Hx Pneumonia: No Hx Sleep Apnea: No - Cardiovascular System Hx Hypertension: No ( and CHF ) Hx Coronary Artery Disease: No Hx Heart Attack/AMI: No Hx Percutaneous Transluminal Coronary Angioplasty (PTCA): No Hx Cardia Arrhythmia: No Hx Internal Defibrillator: No Hx Valvular Heart Disease: No Hx Heart Murmur: No Hx Peripheral Vascular Disease: No - Central Nervous System Hx Seizures: No Hx Psychiatric Problems: No - Endocrine Hx Renal Disease: No Hx End Stage Renal Disease: No Hx Cirrhosis: No Hx Liver Disease: No Hx Insulin Dependent Diabetes: No Hx Non-Insulin Dependent Diabetes: No Hx Thyroid Disease: No Hx Hypothyroidism: No Hx Hyperthyroidism: No - Hematic Hx Anemia: No Hx Sickle Cell Disease: No - Other Systems Hx Alcohol Use: No Hx Substance Use: No Hx Cancer: No Hx Obesity: No
--- NOTE | 2018-07-21 11:44 | Anesthesia Consultation ---
Anesthesia Consult and Med Hx - Airway Anesthetic Teeth Evaluation: Good ROM Head & Neck: Adequate Mental/Hyoid Distance: Adequate Mallampati Class: Class III Intubation Access Assessment: Probably Good - Pulmonary Exam CTA: Yes - Cardiac Exam Cardiac Exam: No Murmur - Pre-Operative Health Status ASA Pre-Surgery Classification: ASA3 Proposed Anesthetic Plan: Spinal - Pulmonary Hx Smoking: Yes Hx Asthma: Yes (pt used neb machine earlier today) - Cardiovascular System Hx Hypertension: No - Central Nervous System Hx Seizures: No Hx Psychiatric Problems: No - Endocrine Hx Renal Disease: No Hx Hypothyroidism: No Hx Hyperthyroidism: No - Hematic Hx Anemia: No Hx Sickle Cell Disease: No - Other Systems Hx Alcohol Use: No Hx Cancer: No
[2018-07-21 11:51] LABS: Basophils % (Auto) 0.3 % (0.0-1.8); Eosinophils # (Auto) 0.1 K/mm3 (0.0-0.4); Eosinophils % (Auto) 0.8 % (0.0-4.3); Hemoglobin 10.9 gm/dl (10.1-14.3); Lymphocytes # (Auto) 1.5 K/mm3 (1.2-5.4); Lymphocytes % (Auto) 20.4 % (13.4-35.0); Mean Corpuscular HGB Conc 31 % (30-34); Mean Corpuscular Volume 77 fl (79-97); Monocytes # (Auto) 0.8 K/mm3 (0.0-0.8); Monocytes % (Auto) 11.5 % (0.0-7.3); Platelet Count 265 K/mm3 (140-440); Red Blood Count 4.58 M/mm3 (3.65-5.03); Red Cell Distribution Width 16.9 % (13.2-15.2)
[2018-07-21] MEDS ORDERED: PITOCin/NS 20 UNIT/1000ML DRIP 20 UNITS/1,000 ML BAG IV SCH ×2 (12:00→15:00)
[2018-07-21] MEDS ORDERED: CLEOCIN 600 MG/50 mL 600 MG/50 ML BAG IV NR (12:00)
[2018-07-21] MEDS ORDERED: NACL 0.9% IR ONE (13:00)
[2018-07-21] MEDS ORDERED: WATER FOR IRRIG STERILE IR ONE (13:00)
[2018-07-21] MEDS ORDERED: SUBLIMAZE ONE ×2 (13:26→13:41)
[2018-07-21] MEDS ORDERED: ZOFRAN ONE (13:29)
[2018-07-21] MEDS ORDERED: NEO SYNEPHRINE/NS Syringe(OR USE) IV ONE (13:30)
[2018-07-21] MEDS ORDERED: DILAUDID ONE (13:30)
--- NOTE | 2018-07-21 14:06 | Operative Report ---
Operative Report Operative Report: Date of procedure: 07/21/2018 Pre-operative diagnosis: 1. Intrauterine at 38-0/7 weeks 2. Previo us 3. Uterine fibroids 4. Congestive heart failure 5. Chronic hypertension Post-operative diagnosis: Same Procedure name(s): Repeat low transverse section Surgeon: Ken Barksdale MD Energy Conservation Representative: None Anesthesia: Spinal anesthesia by Dr. [place] EBL: 500 mls Findings: A 2895 g female Apgars 8 at 1 minute and 9 at 5 minutes. Clear amniotic fluid. Fibroid uterus. Normal tubes and ovaries bilaterally. Procedure: After the patient was prepped and draped in usual sterile fashion, and after satisfactory level of epidural anesthesia was obtained, the skin knife was used to make a transverse skin incision through the previous skin scar. The incision was excised down to layer of the fascia, which was nicked in the midline and extended laterally using the Bovie cautery. The rectus muscles were dissected off the rectus fascia both superiorly and inferiorly. The rectus bellies in the midline, and the peritoneum was entered under direct visualization. The peritoneal incision was extended superiorly and inferiorly. A bladder flap was created and the bladder blade was then placed. The uterus was scored in a curvilinear linear fashion, entered in the midline revealing clear amniotic fluid. The infant's head was delivered onto the surgical field with aid of a vacuum, and the oropharynx and nasopharynx were bulb suctioned. Nuchal cord 1 easily reduced. The rest of the infant's body was delivered, cord was doubly clamped and cut and the infant was handed to the waiting respiratory team. Cord blood was then obtained. The placenta was manually removed from the uterus, but the uterus could not be removed from its normal anatomical position. After gentle uterine lavage, the incision was inspected and found to be without extensions. It was then closed in 2 layers using 0 Vicryl suture in a running interlocking fashion, the second layer imbricating the first. After good hemostasis was achieved, copious amounts or irrigation was performed, and the gutters were suctioned free of blood and blood clots. The Tisseel sealant was sprayed across the uterine incision. After excellent hemostasis assured, the peritoneum was re-approximated using 3-0 Vicryl suture in a running interlocking fashion, and then the rectus muscles were re- approximated using 3-0 Vicryl suture in a [id number] configuration. The fascia was then re-approximated using 0 Vicryl suture in running interlocking fashion. The subcutaneous layer was made hemostatic using Bovie cautery, the Tisseel sealant was sprayed across the fascial incision and the skin edges re- approximated using 4-0 Vicryl suture in a sub-cuticular fashion. Patient tolerated the procedure well was transported to recovery in stable condition.
[2018-07-21] MEDS ORDERED: NARCAN 0.4 MG/1 ML IV PRN ×2 (14:30→15:30)
[2018-07-21] MEDS ORDERED: ZOFRAN IV PRN ×2 (14:30→15:30)
[2018-07-21] MEDS ORDERED: PHENERGAN PR PRN (14:30)
[2018-07-21] MEDS ORDERED: PHENERGAN PO PRN (14:30)
[2018-07-21] MEDS ORDERED: TYLENOL PO PRN (14:32)
[2018-07-21] MEDS ORDERED: MARCAINE 0.25% INFILTRATI ONE ×2 (14:43→14:47)
[2018-07-21] MEDS ORDERED: MARCAINE-EPI/PF 0.5%-1:200,000 INFILTRATI ONE (14:46)
[2018-07-21] MEDS: DILAUDID IV PRN ×5 (14:48→15:24)
[2018-07-21] MEDS ORDERED: SODIUM CHLORIDE FLUSH SYRINGE 10 ML IV NR (15:00)
[2018-07-21] MEDS ORDERED: SODIUM CHLORIDE FLUSH SYRINGE 10 ML IV PRN (15:00)
[2018-07-21] MEDS ORDERED: D5LR 1,000 ML IV SCH (15:00)
[2018-07-21] MEDS ORDERED: TUCKS PAD TP PRN (15:30)
[2018-07-21] MEDS ORDERED: BENADRYL IV PRN (15:30)
[2018-07-21] MEDS ORDERED: LANSINOH TP PRN (15:30)
[2018-07-21] MEDS ORDERED: PITOCin/NS 20 UNIT/1000ML DRIP 20,000 MILLIUNITS/1,000 ML BAG IV ONE (17:16)
[2018-07-21] MEDS: TORADOL IV PRN (19:38)
[2018-07-21] MEDS ORDERED: MILK OF MAGNESIA PO PRN (22:00)
[2018-07-21] MEDS ORDERED: SENOKOT PO PRN (22:00)
[2018-07-21] MEDS: CLEOCIN 600 MG/50 mL 600 MG/50 ML BAG IV SCH (23:34)
[2018-07-22] MEDS: TORADOL IV PRN (01:43)
[2018-07-22 01:58] LABS: Hematocrit 31.2 % (30.3-42.9); Hemoglobin 9.9 gm/dl (10.1-14.3)
[2018-07-22] MEDS ORDERED: BOOSTRIX IM ONE (06:00)
--- NOTE | 2018-07-22 06:33 | Consultation ---
History of Present Illness - Reason for Consult Consult date: 07/21/18 CHF Requesting physician: JOHANNA CLEMONS - History of Present Illness 33 y/o AAF being evaluated for CHF. Patient has history of CHF and was on Lasix which she stopped 2 years ago.Patient had Csection delivery today.No SOB or Orthopnea.Complains of legs and hands being swollen.No SOB.No chest pain Past History Past Medical History: heart failure, hypertension Past Surgical History: Social history: no significant social history, single, full code Family history: hypertension Medications and Allergies Allergies Allergy/AdvReac Type Severity Reaction Status Date / Time amoxicillin [Amoxicillin] Allergy Rash Verified 06/19/18 10:16 codeine Allergy Angioedema Verified 06/19/18 10:16 latex Allergy Rash Verified 06/19/18 10:16 Home Medications Medication Instructions Recorded Confirmed Last Taken Type Metoprolol SUCCINATE ER TAB 25 mg PO BID 10/12/17 07/21/18 07/19/18 09:00 History 1 Ferrous Sulfate [Feosol 325 MG tab] 325 mg PO BID #60 tablet 07/21/18 Unknown Rx HYDROcodone/APAP 5-325 [[place] 1 each PO Q6HR PRN #30 tablet 07/21/18 Unknown Rx 5/325] Ibuprofen [Motrin] 800 mg PO Q8HR PRN #30 tablet 07/21/18 Unknown Rx Pnv No.95/Ferrous Fum/Folic AC 1 each PO DAILY #30 tablet 07/21/18 Unknown Rx [Prenavite Tablet] Vit-Fe Fumar-FA [ 1 tab PO QDAY 07/21/18 07/21/18 07/20/18 23:00 History Vitamin] Active Meds: Active Medications Acetaminophen (Tylenol) 650 mg PO Q4H PRN PRN Reason: Fever >100.5/[place] Acetaminophen/Hydrocodone Bitart ([place] 5/325) 1 each PO Q4H PRN PRN Reason: Pain, Moderate (4-6) Diphenhydramine HCl (Benadryl) 25 mg IV Q6H PRN PRN Reason: Itching Ferrous Sulfate (Feosol) 325 mg PO QDAY [place] Dextrose/Lactated Ringer's (D5lr) 1,000 mls @ 125 mls/hr IV DIRECT MAITE Last Admin: 07/22/18 01:43 Dose: 125 mls/hr Documented by: Oxytocin/Sodium Chloride (Pitocin/Ns 20 Unit/1000ml Drip) 20 units in 1,000 mls @ 250 mls/hr IV DIRECT MAITE Ibuprofen (Motrin) 800 mg PO Q6H PRN PRN Reason: Pain, Mild (1-3) Ketorolac Tromethamine (Toradol) 30 mg IV Q6H PRN PRN Reason: Pain, Moderate (4-6) Stop: 07/26/18 15:29 Last Admin: 07/22/18 01:43 Dose: 30 mg Documented by: Magnesium Hydroxide (Milk Of Magnesia) 30 ml PO QHS PRN PRN Reason: Constip Unrelieved By Senna Measles/Mumps/Rubella Vaccine Live (M-M-R Ii Vaccine) 0.5 ml SUB-Q .ONCE ONE Stop: 07/22/18 11:01 Multi-Ingredient Ointment (Lansinoh) 1 applic TP PRN PRN PRN Reason: dryness/cracking Multivitamins/Iron/Calcium ( Vitamin) 1 each PO QDAY [place] Naloxone HCl (Narcan 0.4 Mg/1 Ml) 0.1 mg IV Q2MIN PRN PRN Reason: Res Rate </= 8 or 02 SAT < 92% Ondansetron HCl (Zofran) 4 mg IV Q8H PRN PRN Reason: Nausea And Vomiting Oxycodone/Acetaminophen (Percocet 5/325) 2 tab PO Q6H PRN PRN Reason: Pain, Moderate (4-6) Promethazine HCl (Phenergan) 25 mg PO Q6H PRN PRN Reason: Nausea And Vomiting Promethazine HCl (Phenergan) 25 mg VT Q6H PRN PRN Reason: Nausea And Vomiting Senna (Senokot) 17.2 mg PO QHS PRN PRN Reason: Constipation Simethicone (Mylicon) 80 mg PO Q6H PRN PRN Reason: Gas pain Sodium Chloride (Sodium Chloride Flush Syringe 10 Ml) 10 ml IV PRN NR Stop: 07/22/18 14:59 Sodium Chloride (Sodium Chloride Flush Syringe 10 Ml) 10 ml IV PRN PRN PRN Reason: flush [place]/Glycerin (Tucks Pad) 1 each TP PRN PRN PRN Reason: Hemorrhoids/cleansing/soothing Review of Systems All systems: negative Exam - Constitutional Vitals: Temp Pulse Resp BP Pulse Ox 98.7 F 104 H 20 142/96 97 07/22/18 00:39 07/22/18 00:39 07/22/18 02:13 07/22/18 00:39 07/22/18 00:39 General appearance: Present: no acute distress, well-nourished - EENT Eyes: Present: PERRL ENT: hearing intact, clear oral mucosa - Neck Neck: Present: supple, normal ROM - Respiratory Respiratory effort: normal Respiratory: bilateral: CTA - Cardiovascular Heart rate: 78 Rhythm: regular Heart Sounds: Present: S1 & S2. Absent: rub, click - Extremities Extremities: no ischemia, pulses intact, pulses symmetrical Extremity abnormal: edema (2 plus lower extremities) Peripheral Pulses: within normal limits - Abdominal General gastrointestinal: Present: soft, non-tender, non-distended, normal bowel sounds Female genitourinary: Present: normal - Integumentary Integumentary: Present: clear, warm, dry - Musculoskeletal Musculoskeletal: gait normal, strength equal bilaterally - Psychiatric Psychiatric: appropriate mood/affect, intact judgment & insight - Neurologic Neurologic: CNII-XII intact, moves all extremities Results - Labs CBC & Chem 7: 07/22/18 01:40 Labs: Abnormal lab results 07/21/18 07/22/18 Range/Units 11:30 01:40 Hgb 9.9 L (10.1-14.3) gm/dl MCV 77 L (79-97) fl MCH 24 L (28-32) pg RDW 16.9 H (13.2-15.2) % [place] % (Auto) 11.5 H (0.0-7.3) % Assessment and Plan - Patient Problems (1) CHF (congestive heart failure) Onset Date: 07/21/18 Current Visit: Yes Status: Chronic Qualifiers: Heart failure chronicity: chronic Plan to address problem: By History Only One dose of Lasix for Pedal edema ECHO for EF Patient not on diuretics for 2 years (2) HTN (hypertension) Current Visit: Yes Status: Chronic Qualifiers: Hypertension type: essential hypertension Qualified Code(s): I10 - Essential (primary) hypertension Plan to address problem: Cont Metoprolol (3) Anemia Current Visit: Yes Status: Chronic Qualifiers: Anemia type: iron deficiency Plan to address problem: Cont Ferrous sulfate (4) DVT prophylaxis Current Visit: Yes Status: Acute (5) DVT prophylaxis Current Visit: Yes Status: Acute Plan to address problem: On SCD's
[2018-07-22] MEDS ORDERED: LASIX IV ONE (06:38)
[2018-07-22] MEDS: CLEOCIN 600 MG/50 mL 600 MG/50 ML BAG IV SCH (08:46)
[2018-07-22] MEDS ORDERED: CLEOCIN 600 MG/50 mL 600 MG/50 ML BAG IV ONE (09:00)
[2018-07-22] MEDS ORDERED: NON-FORMULARY (Metoprolol Succinate Er Tab 25 MG) PO SCH (10:00)
[2018-07-22] MEDS ORDERED: PRENATAL VITAMIN PO SCH (10:00)
[2018-07-22] MEDS: PERCOCET 5/325 PO PRN (10:02)
[2018-07-22] MEDS: FEOSOL PO SCH (10:02)
[2018-07-22] MEDS: K-DUR PO SCH (10:03)
[2018-07-22] MEDS: PRENATAL VITAMIN PO SCH (10:04)
[2018-07-22] MEDS ORDERED: M-M-R II VACCINE SUB-Q ONE (11:00)
[2018-07-22] MEDS: TOPROL XL PO SCH ×2 (11:16→22:00)
--- NOTE | 2018-07-22 12:05 | Progress Note ---
Assessment and Plan - Patient Problems (1) 38 weeks gestation of Onset Date: 07/21/18 Current Visit: Yes Status: Resolved (2) CHF (congestive heart failure) Onset Date: 07/21/18 Current Visit: Yes Status: Chronic Qualifiers: Heart failure chronicity: chronic (3) Chronic hypertension Onset Date: 07/21/18 Current Visit: Yes Status: Chronic (4) Uterine fibroid in Onset Date: 07/21/18 Current Visit: Yes Status: Chronic (5) Status post Onset Date: 07/22/18 Current Visit: Yes Status: Resolved Plan to address problem: A: S/P Repeat C Section - POD #1 Doing well Asymptomatic anemia - stable CHF - doing well P: Continue RPOC Appreciate Hospitalist input EKG pending Anticipate discharge in 24-48hrs Subjective - Subjective Date of service: 07/22/18 Principal diagnosis: s/p C Section - POD #1 Interval history: Pt is feeling well without complaints. She is tolerating a reg diet without nausea or vomiting, ambulating and voiding without difficulty. Patient reports: appetite normal, voiding normally, pain well controlled, flatus, ambulating normally, no dizzy ambulation, no nauseated [place]: doing well, bottle feeding Objective - Vital Signs Latest vital signs: Vital Signs Temp Pulse Resp BP Pulse Ox 07/22/18 11:16 106 H 141/71 07/22/18 08:24 99.2 F 106 H 20 141/71 97 07/22/18 05:24 98.3 F 100 H 30 H 140/92 98 07/22/18 02:13 20 07/22/18 01:43 18 07/22/18 00:39 98.7 F 104 H 22 142/96 97 07/21/18 21:21 99.1 F 95 H 20 150/73 97 07/21/18 20:08 18 07/21/18 19:38 18 07/21/18 15:33 78 18 138/88 98 07/21/18 15:24 18 07/21/18 15:20 18 07/21/18 15:18 18 07/21/18 15:10 84 18 140/73 98 07/21/18 15:09 18 07/21/18 15:00 18 07/21/18 14:55 98.3 F 74 18 118/88 98 07/21/18 14:50 18 07/21/18 14:48 18 07/21/18 14:40 77 18 122/59 98 07/21/18 14:25 82 18 136/73 98 07/21/18 14:20 80 18 103/42 98 07/21/18 14:15 78 20 129/62 98 07/21/18 14:10 97.9 F 80 20 122/59 98 07/21/18 12:21 96 H 157/90 Intake and Output 07/21/18 07/22/18 07/22/18 22:59 06:59 14:59 Intake Total 400 410 Output Total 1000 1800 300 Balance -600 -1390 -300 Intake: IV 400 50 CLEOCIN 600 MG/50 mL 600 50 mg In 50 ml @ 100 mls/hr IV Q8H [facility] Rx#:[id number] Oral 240 Intake, Free Water 120 Output: Urine 1000 1800 300 Indwelling Catheter 1800 Void 300 Other: Total, Intake Amount 240 Total, Output Amount 1000 300 # Voids Void 1 - Exam Breasts: Present: deferred Abdomen: Present: normal appearance, soft Uterus: Present: normal, firm, fundal height below umbilicus Extremities: Present: normal Incision: Present: normal, dry, intact, dressed - Labs Labs: Abnormal lab results 07/22/18 Range/Units 01:40 Hgb 9.9 L (10.1-14.3) gm/dl Laboratory Tests 07/21/18 07/21/18 07/22/18 11:30 11:30 01:40 WBC 7.3 RBC 4.58 Hgb 10.9 9.9 L Hct 35.0 31.2 MCV 77 L MCH 24 L MCHC 31 RDW 16.9 H Plt Count 265 Lymph % (Auto) 20.4 [place] % (Auto) 11.5 H Eos % (Auto) 0.8 Baso % (Auto) 0.3 Lymph # 1.5 [place] # 0.8 Eos # 0.1 Baso # 0.0 Seg Neutrophils % 67.0 Seg Neutrophils # 4.9 Hep Bs Antigen Blood Type O POSITIVE Antibody Screen Negative 07/22/18 11:20 WBC RBC Hgb Hct MCV MCH MCHC RDW Plt Count Lymph % (Auto) [place] % (Auto) Eos % (Auto) Baso % (Auto) Lymph # [place] # Eos # Baso # Seg Neutrophils % Seg Neutrophils # Hep Bs Antigen Non-reactive Blood Type Antibody Screen
--- NOTE | 2018-07-22 14:44 | Progress Note ---
Assessment and Plan (1) CHF (congestive heart failure) Onset Date: 07/21/18 Current Visit: Yes Status: Chronic Qualifiers: Heart failure chronicity: chronic Plan to address problem: By History s/p One dose of Lasix for Pedal edema ECHO for EF - pending Patient not on diuretics for 2 years (2) HTN (hypertension) Current Visit: Yes Status: Chronic Qualifiers: Hypertension type: essential hypertension Qualified Code(s): I10 - Essential (primary) hypertension Plan to address problem: Cont Metoprolol (3) Anemia Current Visit: Yes Status: Chronic Qualifiers: Anemia type: iron deficiency Plan to address problem: Cont Ferrous sulfate (4) DVT prophylaxis Current Visit: Yes Status: Acute On SCD's Subjective Date of service: 07/22/18 Principal diagnosis: s/p C Section - POD #1 Interval history: pt seen and examined denies any chest pain or SOB tolerating diet Objective - Constitutional Vitals: Vital Signs - 12hr 07/22/18 07/22/18 07/22/18 05:24 08:24 11:16 Temperature 98.3 F 99.2 F Pulse Rate 100 H 106 H 106 H Respiratory 30 H 20 Rate Blood Pressure 140/92 141/71 141/71 O2 Sat by Pulse 98 97 Oximetry General appearance: Present: no acute distress, well-nourished - EENT Eyes: PERRL, EOM intact ENT: hearing intact, clear oral mucosa Ears: bilateral: normal - Neck Neck: supple, normal ROM - Respiratory Respiratory effort: normal Respiratory: bilateral: CTA - Cardiovascular Rhythm: regular Heart Sounds: Present: S1 & S2. Absent: gallop, rub Extremities: pulses intact, No edema, normal color, Full ROM - Gastrointestinal General gastrointestinal: Present: soft, non-tender, non-distended, normal bowel sounds - Integumentary Integumentary: clear, warm, dry - Musculoskeletal Musculoskeletal: 1, strength equal bilaterally - Neurologic Neurologic: moves all extremities - Psychiatric Psychiatric: memory intact, appropriate mood/affect, intact judgment & insight - Labs CBC & Chem 7: 07/22/18 01:40 Labs: Abnormal lab results 07/22/18 Range/Units 01:40 Hgb 9.9 L (10.1-14.3) gm/dl
[2018-07-22] MEDS: NORCO 5/325 PO PRN ×2 (15:10→22:57)
[2018-07-22] MEDS: IBUPROFEN PO PRN ×2 (17:32→23:54)
[2018-07-22] MEDS: MYLICON PO PRN ×2 (17:35→23:53)
[2018-07-23] MEDS: TOPROL XL PO SCH ×2 (10:00→23:04)
[2018-07-23] MEDS: FEOSOL PO SCH (10:00)
[2018-07-23] MEDS: PRENATAL VITAMIN PO SCH (10:01)
[2018-07-23] MEDS: NORCO 5/325 PO PRN ×2 (10:01→17:56)
[2018-07-23] MEDS: K-DUR PO SCH (10:02)
[2018-07-23] MEDS: IBUPROFEN PO PRN ×2 (10:04→17:58)
--- NOTE | 2018-07-23 15:09 | Progress Note ---
Assessment and Plan (1) CHF (congestive heart failure) Onset Date: 07/21/18 Current Visit: Yes Status: Chronic Qualifiers: Heart failure chronicity: chronic Plan to address problem: By History s/p One dose of Lasix for Pedal edema ECHO showed Ef 35-40% Patient not on diuretics for 2 years will consult cardiology (2) HTN (hypertension) Current Visit: Yes Status: Chronic Qualifiers: Hypertension type: essential hypertension Qualified Code(s): I10 - Essential (primary) hypertension Plan to address problem: Cont Metoprolol (3) Anemia Current Visit: Yes Status: Chronic Qualifiers: Anemia type: iron deficiency Plan to address problem: Cont Ferrous sulfate (4) DVT prophylaxis Current Visit: Yes Status: Acute On SCD's Subjective Date of service: 07/23/18 Principal diagnosis: s/p C Section - POD #1 Interval history: pt seen and examined denies any chest pain, c/o SOB on exertion No LE swelling, tolerating diet Objective - Exam Narrative Exam: There is no fever his blood cultures and other General appearance: Present: no acute distress, well-nourished - EENT Eyes: PERRL, EOM intact ENT: hearing intact, clear oral mucosa Ears: bilateral: normal - Neck Neck: supple, normal ROM - Respiratory Respiratory effort: normal Respiratory: bilateral: CTA - Cardiovascular Rhythm: regular Heart Sounds: Present: S1 & S2. Absent: gallop, rub Extremities: pulses intact, No edema, normal color, Full ROM - Gastrointestinal General gastrointestinal: Present: soft, non-tender, non-distended, normal bowel sounds - Integumentary Integumentary: clear, warm, dry - Musculoskeletal Musculoskeletal: 1, strength equal bilaterally - Neurologic Neurologic: moves all extremities - Psychiatric Psychiatric: memory intact, appropriate mood/affect, intact judgment & insight - Constitutional Vitals: Vital Signs - 12hr 07/23/18 07/23/18 07/23/18 08:07 10:01 10:04 Temperature 98.0 F Pulse Rate 87 Respiratory 20 20 20 Rate Blood Pressure 150/92 O2 Sat by Pulse 100 Oximetry 07/23/18 12:22 Temperature 99.0 F Pulse Rate 101 H Respiratory 20 Rate Blood Pressure 147/87 O2 Sat by Pulse 98 Oximetry - Labs CBC & Chem 7: 07/22/18 01:40 07/23/18 15:54
[2018-07-23 16:26] LABS: Alanine Aminotransferase 10 units/L (7-56); Albumin 3.1 g/dL (3.9-5); BUN/Creatinine Ratio 22; Blood Urea Nitrogen 11 mg/dL (7-17); Calcium 9.2 mg/dL (8.4-10.2); Hemolysis Index 18
[2018-07-23] MEDS: PERCOCET 5/325 PO PRN (23:06)
--- NOTE | 2018-07-23 23:39 | Progress Note ---
Assessment and Plan A: /postop day 2 S/P repeat LTCS. P: Continue current management. Subjective - Subjective Date of service: 07/23/18 Principal diagnosis: s/p C Section - POD #2 Patient reports: appetite normal, voiding normally, pain well controlled, flatus, ambulating normally, no dizzy ambulation, no nauseated : doing well Objective - Vital Signs Latest vital signs: Vital Signs Temp Pulse Resp BP BP Pulse Ox 07/23/18 23:06 22 07/23/18 23:04 90 140/85 07/23/18 17:58 20 07/23/18 17:56 20 07/23/18 16:07 97.9 F 98 H 24 135/71 100 07/23/18 12:22 99.0 F 101 H 20 147/87 98 07/23/18 10:04 20 07/23/18 10:01 20 07/23/18 08:07 98.0 F 87 20 150/92 100 07/23/18 00:00 98.7 F 70 16 140/70 07/22/18 23:54 18 Intake and Output 07/23/18 07/23/18 07/23/18 07:59 15:59 23:59 Intake Total 200 600 240 Balance 200 600 240 Intake: Oral 200 600 240 Other: Total, Intake Amount 200 240 240 # Voids Void 1 1 - Exam Cardiovascular: Present: Regular rate, Normal S1, Normal S2 Lungs: Present: Clear to auscultation Abdomen: Present: normal appearance, soft, normal bowel sounds. Absent: distention, tenderness, guarding, rigidity Uterus: Present: normal, firm, fundal height below umbilicus. Absent: bogginess, tenderness Extremities: Present: normal. Absent: tenderness, edema Incision: Present: normal, dry, intact - Labs Labs: Abnormal lab results 07/23/18 Range/Units 15:54 Creatinine 0.5 L (0.7-1.2) mg/dL Alkaline Phosphatase 137 H (35-129) units/L Total Protein 6.0 L (6.3-8.2) g/dL Albumin 3.1 L (3.9-5) g/dL
[2018-07-24] MEDS: IBUPROFEN PO PRN ×3 (00:25→17:49)
[2018-07-24] MEDS: MYLICON PO PRN (00:25)
[2018-07-24] MEDS: PERCOCET 5/325 PO PRN ×2 (04:56→22:12)
[2018-07-24] MEDS: TOPROL XL PO SCH ×2 (10:13→22:10)
[2018-07-24] MEDS: FEOSOL PO SCH (10:13)
[2018-07-24] MEDS: PRENATAL VITAMIN PO SCH (10:13)
[2018-07-24] MEDS: K-DUR PO SCH (10:13)
--- NOTE | 2018-07-24 11:34 | Progress Note ---
Assessment and Plan (1) CHF (congestive heart failure) Onset Date: 07/21/18 Current Visit: Yes Status: Chronic Qualifiers: Heart failure chronicity: chronic Plan to address problem: By History s/p One dose of Lasix iv for Pedal edema will start on lasix scheduled dose hols aspirin as she is POd #3 ECHO showed Ef 35-40% Patient not on diuretics for 2 years Consulted cardiology, need close outpt followup (2) HTN (hypertension) Current Visit: Yes Status: Chronic Qualifiers: Hypertension type: essential hypertension Qualified Code(s): I10 - Essential (primary) hypertension Plan to address problem: Cont Metoprolol (3) Anemia Current Visit: Yes Status: Chronic Qualifiers: Anemia type: iron deficiency Plan to address problem: Cont Ferrous sulfate (4) DVT prophylaxis Current Visit: Yes Status: Acute On SCD's Subjective Date of service: 07/24/18 Principal diagnosis: s/p C Section - POD #1 Interval history: pt seen and examined denies any chest pain, c/o SOB on exertion No LE swelling, tolerating diet Objective - Exam Narrative Exam: There is no fever his blood cultures and other General appearance: Present: no acute distress, well-nourished - EENT Eyes: PERRL, EOM intact ENT: hearing intact, clear oral mucosa Ears: bilateral: normal - Neck Neck: supple, normal ROM - Respiratory Respiratory effort: normal Respiratory: bilateral: CTA - Cardiovascular Rhythm: regular Heart Sounds: Present: S1 & S2. Absent: gallop, rub Extremities: pulses intact, No edema, normal color, Full ROM - Gastrointestinal General gastrointestinal: Present: soft, non-tender, non-distended, normal bowel sounds - Integumentary Integumentary: clear, warm, dry - Musculoskeletal Musculoskeletal: 1, strength equal bilaterally - Neurologic Neurologic: moves all extremities - Psychiatric Psychiatric: memory intact, appropriate mood/affect, intact judgment & insight - Constitutional Vitals: Vital Signs - 12hr 07/24/18 07/24/18 07/24/18 00:06 00:25 00:30 Temperature 98.4 F Pulse Rate 70 Respiratory 20 20 18 Rate Blood Pressure 130/72 [Left] Blood Pressure [Right] O2 Sat by Pulse Oximetry 07/24/18 07/24/18 07/24/18 04:00 04:56 07:57 Temperature 98.7 F 98.1 F Pulse Rate 80 75 Respiratory 16 20 20 Rate Blood Pressure 122/78 [Left] Blood Pressure 133/62 [Right] O2 Sat by Pulse 100 Oximetry - Labs CBC & Chem 7: 07/22/18 01:40 07/23/18 15:54 Labs: Abnormal lab results 07/23/18 Range/Units 15:54 Creatinine 0.5 L (0.7-1.2) mg/dL Alkaline Phosphatase 137 H (35-129) units/L Total Protein 6.0 L (6.3-8.2) g/dL Albumin 3.1 L (3.9-5) g/dL
--- NOTE | 2018-07-24 13:03 | Progress Note ---
Assessment and Plan A: /postop day 3 S/P repeat LTCS. Chronic hypertension. CHF. P: Continue current management. Pt. to be seen by cardiology. Subjective - Subjective Date of service: 07/24/18 Principal diagnosis: s/p C Section - POD #3 Interval history: /postop day 3 S/P repeat LTCS. Patient being seen by hospitalist and cardiology consult pending. Patient reports she has had mild SOB. She denies chest pain. She is voiding without difficulty and ambulating well. Passing gas. Tolerating a regular diet. Patient reports: appetite normal, voiding normally, pain well controlled, flatus, ambulating normally, no dizzy ambulation, no nauseated [place]: doing well Objective - Vital Signs Latest vital signs: Vital Signs Temp Pulse Resp BP BP BP Pulse Ox 07/24/18 10:13 88 141/62 07/24/18 07:57 98.1 F 75 20 133/62 100 07/24/18 04:56 20 07/24/18 04:00 98.7 F 80 16 122/78 07/24/18 00:30 98.4 F 70 18 130/72 07/24/18 00:25 20 07/24/18 00:06 20 07/23/18 23:06 22 07/23/18 23:04 90 140/85 07/23/18 19:30 98.7 F 75 18 133/72 07/23/18 17:58 20 07/23/18 17:56 20 07/23/18 16:07 97.9 F 98 H 24 135/71 100 Intake and Output 07/23/18 07/24/18 07/24/18 23:59 07:59 15:59 Intake Total 240 240 Balance 240 240 Intake: Oral 240 240 Other: Total, Intake Amount 240 240 # Voids Indwelling Catheter 1 Void 1 1 1 - Exam Cardiovascular: Present: Regular rate, Normal S1, Normal S2 Lungs: Present: Clear to auscultation Abdomen: Present: normal appearance, soft, normal bowel sounds. Absent: distention, tenderness, guarding, rigidity Uterus: Present: normal, firm, fundal height below umbilicus. Absent: bogginess, tenderness Extremities: Present: normal, edema (mild pedal edema bilaterally). Absent: tenderness Incision: Present: normal, dry, intact - Labs Labs: Abnormal lab results 07/23/18 Range/Units 15:54 Creatinine 0.5 L (0.7-1.2) mg/dL Alkaline Phosphatase 137 H (35-129) units/L Total Protein 6.0 L (6.3-8.2) g/dL Albumin 3.1 L (3.9-5) g/dL
[2018-07-24] MEDS: LASIX PO SCH (17:50)
[2018-07-25] MEDS: PERCOCET 5/325 PO PRN ×2 (05:16→11:09)
[2018-07-25] MEDS: LASIX PO SCH ×2 (06:18→18:31)
[2018-07-25] MEDS: MYLICON PO PRN (06:20)
[2018-07-25] MEDS: TOPROL XL PO SCH ×2 (10:00→22:49)
[2018-07-25] MEDS: K-DUR PO SCH (11:03)
[2018-07-25] MEDS: FEOSOL PO SCH (11:09)
[2018-07-25] MEDS: IBUPROFEN PO PRN (11:10)
[2018-07-25] MEDS: PRENATAL VITAMIN PO SCH (11:10)
--- NOTE | 2018-07-25 11:37 | Consultation ---
Addendum entered and electronically signed by ANUPAMA FLORES MD 07/25/18 18:13: The patient has a nonischemic cardiomyopathy and requires guideline directed med ical therapy including an Nikolas or ARB, beta blockers, and a loop diuretic and spironolactone, and low-dose aspirin. Some or all of these agents are variously excreted in breast milk, we will recommend that she avoids breast-feeding while on heart failure therapies, unless otherwise advised by her pension agent and dietetics teacher. Patient is otherwise stable for cardiac discharge with outpatient follow-up in 5-7 days with her primary drum filler Dr. Dumont. Original Note: History of Present Illness Consult date: 07/25/18 Consult reason: congestive heart failure History of present illness: Patient is a 33 year old woman whom is status post cesarian section. Patient is known to [facility] and sees Dr Dumont on a routine basis. She has a history of peripartum cardiomyopathy diagnosed during her first greater than 5 years ago. She also has chronic hypertension. An echocardiogram this admission revealed a decreased left ventricular systolic function, ejection fraction 35- 40% thus this cardiac consultation. Patient is resting in bed and appears comfortable. She denies unusual shortness of breath, chest pain and palpitations. There is no lower extremity edema. Past History Past Medical History: heart failure, hypertension Past Surgical History: Social history: no significant social history, single, full code Family history: hypertension Medications and Allergies Allergies Allergy/AdvReac Type Severity Reaction Status Date / Time amoxicillin [Amoxicillin] Allergy Rash Verified 06/19/18 10:16 codeine Allergy Angioedema Verified 06/19/18 10:16 latex Allergy Rash Verified 06/19/18 10:16 Home Medications Medication Instructions Recorded Confirmed Last Taken Type Metoprolol SUCCINATE ER TAB 25 mg PO BID 10/12/17 07/21/18 07/19/18 09:00 History 1 Ferrous Sulfate [Feosol 325 MG tab] 325 mg PO BID #60 tablet 07/21/18 Unknown Rx HYDROcodone/APAP 5-325 [[place] 1 each PO Q6HR PRN #30 tablet 07/21/18 Unknown Rx 5/325] Ibuprofen [Motrin] 800 mg PO Q8HR PRN #30 tablet 07/21/18 Unknown Rx Pnv No.95/Ferrous Fum/Folic AC 1 each PO DAILY #30 tablet 07/21/18 Unknown Rx [Prenavite Tablet] Vit-Fe Fumar-FA [ 1 tab PO QDAY 07/21/18 07/21/18 07/20/18 23:00 History Vitamin] Active Meds: Active Medications Acetaminophen (Tylenol) 650 mg PO Q4H PRN PRN Reason: Fever >100.5/[place] Acetaminophen/Hydrocodone Bitart ([place] 5/325) 1 each PO Q4H PRN PRN Reason: Pain, Moderate (4-6) Last Admin: 07/23/18 17:56 Dose: 1 each Documented by: Diphenhydramine HCl (Benadryl) 25 mg IV Q6H PRN PRN Reason: Itching Ferrous Sulfate (Feosol) 325 mg PO QDAY [facility] Last Admin: 07/25/18 11:09 Dose: 325 mg Documented by: Furosemide (Lasix) 40 mg PO 0600,1800 [facility] Last Admin: 07/25/18 06:18 Dose: 40 mg Documented by: Oxytocin/Sodium Chloride (Pitocin/Ns 20 Unit/1000ml Drip) 20 units in 1,000 mls @ 250 mls/hr IV DIRECT [facility] Ibuprofen (Motrin) 800 mg PO Q6H PRN PRN Reason: Pain, Mild (1-3) Last Admin: 07/25/18 11:10 Dose: 800 mg Documented by: Ketorolac Tromethamine (Toradol) 30 mg IV Q6H PRN PRN Reason: Pain, Moderate (4-6) Stop: 07/26/18 15:29 Last Admin: 07/22/18 01:43 Dose: 30 mg Documented by: Magnesium Hydroxide (Milk Of Magnesia) 30 ml PO QHS PRN PRN Reason: Constip Unrelieved By Senna Metoprolol Succinate (Toprol Xl) 25 mg PO BID [facility] Last Admin: 07/24/18 22:10 Dose: 25 mg Documented by: Multi-Ingredient Ointment (Lansinoh) 1 applic TP PRN PRN PRN Reason: dryness/cracking Multivitamins/Iron/Calcium ( Vitamin) 1 each PO QDAY [facility] Last Admin: 07/25/18 11:10 Dose: 1 each Documented by: Naloxone HCl (Narcan 0.4 Mg/1 Ml) 0.1 mg IV Q2MIN PRN PRN Reason: Res Rate </= 8 or 02 SAT < 92% Ondansetron HCl (Zofran) 4 mg IV Q8H PRN PRN Reason: Nausea And Vomiting Oxycodone/Acetaminophen (Percocet 5/325) 2 tab PO Q6H PRN PRN Reason: Pain, Moderate (4-6) Last Admin: 07/25/18 11:09 Dose: 2 tab Documented by: Potassium Chloride (K-Dur) 20 meq PO QDAY [place] Last Admin: 07/25/18 11:03 Dose: 20 meq Documented by: Promethazine HCl (Phenergan) 25 mg PO Q6H PRN PRN Reason: Nausea And Vomiting Promethazine HCl (Phenergan) 25 mg SD Q6H PRN PRN Reason: Nausea And Vomiting Senna (Senokot) 17.2 mg PO QHS PRN PRN Reason: Constipation Simethicone (Mylicon) 80 mg PO Q6H PRN PRN Reason: Gas pain Last Admin: 07/25/18 06:20 Dose: 80 mg Documented by: Sodium Chloride (Sodium Chloride Flush Syringe 10 Ml) 10 ml IV PRN PRN PRN Reason: flush [place]/Glycerin (Tucks Pad) 1 each TP PRN PRN PRN Reason: Hemorrhoids/cleansing/soothing Physical Examination Vital Signs Pulse BP 100 H 152/88 07/21/18 11:12 07/21/18 11:12 General appearance: no acute distress HEENT: Positive: PERRL Neck: Positive: trachea midline Cardiac: Positive: Reg Rate and Rhythm Lungs: Positive: Decreased Breath Sounds Neuro: Positive: Grossly Intact Extremities: Absent: edema Results 07/22/18 01:40 07/23/18 15:54 Assessment and Plan s/p Cesarian section Hx of peripartum CMP Hypertension Recommendations: Medical therapy for dilated cardiomyopathy to include diuretics, beta blockers, afterload reduction agents and oral antiplatelet therapy. Patient advised not to breastfeed. Stable cardiac sprague. Once discharged, patient advised to follow up with her primary drum filler within 1-2 weeks.
--- NOTE | 2018-07-25 12:39 | Progress Note ---
Assessment and Plan - Patient Problems (1) S/P repeat low transverse Current Visit: Yes Status: Acute Plan to address problem: POD 4 - stable Continue routine postop orders Ambulation encouraged, as tolerated Awaiting clearance from Cardiology for discharge (2) Cardiomyopathy Current Visit: Yes Status: Acute Plan to address problem: s/p Internal Medicine and Cardiology consult (3) H/O congestive heart failure Current Visit: Yes Status: Acute Plan to address problem: Continue current management (4) Chronic hypertension Onset Date: 07/21/18 Current Visit: Yes Status: Chronic Plan to address problem: Continue current management (5) Anemia in puerperium, baby delivered during current episode of care Current Visit: Yes Status: Acute Plan to address problem: Asymptomatic Continue iron therapy Subjective - Subjective Date of service: 07/25/18 Principal diagnosis: POD #4; s/p Repeat LTCS; Cardiomyopathy, h/o CHF, CHTN Patient reports: appetite normal, voiding normally, pain well controlled, flatus, bowel movement, ambulating normally, other (reports occasional SOB when lying down but denies headache, visual disturbances or RUQ pain), no dizzy ambulation [place]: doing well, other (breast and bottle feeding) Objective - Vital Signs Latest vital signs: Vital Signs Temp Pulse Resp BP BP Pulse Ox 07/25/18 11:10 20 07/25/18 11:09 20 07/25/18 07:24 98.3 F 95 H 18 147/98 07/25/18 06:16 18 07/25/18 05:16 18 07/25/18 05:08 147/88 07/25/18 04:50 98.2 F 92 H 20 147/88 07/25/18 00:33 125/70 07/25/18 00:00 98.4 F 94 H 20 125/70 07/24/18 23:12 18 07/24/18 22:12 18 07/24/18 22:10 104 H 154/97 07/24/18 20:02 111 H 147/95 98 07/24/18 20:00 99.4 F 106 H 20 147/85 98 07/24/18 17:49 20 07/24/18 16:08 99.4 F 104 H 20 153/84 100 Intake and Output 07/24/18 07/25/18 07/25/18 23:59 07:59 15:59 Intake Total 360 840 Balance 360 840 Intake: Oral 480 Intake, Free Water 360 360 Other: Total, Intake Amount 480 # Voids Void 1 1 - Exam Cardiovascular: Present: Regular rate Lungs: Present: Clear to auscultation Abdomen: Present: normal appearance Vulva: both: normal Uterus: Present: normal, firm, fundal height below umbilicus Extremities: Present: normal Incision: Present: normal, dry, intact Comments: scant lochia
--- NOTE | 2018-07-25 13:27 | Progress Note ---
Assessment and Plan (1) CHF (congestive heart failure) Onset Date: 07/21/18 Current Visit: Yes Status: Chronic Qualifiers: Heart failure chronicity: chronic Plan to address problem: s/p One dose of Lasix iv for Pedal edema Now on lasix scheduled dose ECHO showed Ef 35-40% Consulted cardiology, need close outpt followup started on aspirin, BB, ACEI, aldactone by cardiology Recommended abstinence from breast feeding (2) HTN (hypertension) Current Visit: Yes Status: Chronic Qualifiers: Hypertension type: essential hypertension Qualified Code(s): I10 - Essential (primary) hypertension Plan to address problem: Cont Metoprolol, ACEI (3) Anemia Current Visit: Yes Status: Chronic Qualifiers: Anemia type: iron deficiency Plan to address problem: Cont Ferrous sulfate (4) DVT prophylaxis Current Visit: Yes Status: Acute On SCD's Subjective Date of service: 07/25/18 Principal diagnosis: POD #4; s/p Repeat LTCS; Cardiomyopathy, h/o CHF, CHTN Interval history: pt seen and examined denies any chest pain, c/o SOB on exertion No LE swelling, tolerating diet upset that she won't be able to breast feed, counseled at bedside with family Objective - Exam Narrative Exam: There is no fever his blood cultures and other General appearance: Present: no acute distress, well-nourished - EENT Eyes: PERRL, EOM intact ENT: hearing intact, clear oral mucosa Ears: bilateral: normal - Neck Neck: supple, normal ROM - Respiratory Respiratory effort: normal Respiratory: bilateral: CTA - Cardiovascular Rhythm: regular Heart Sounds: Present: S1 & S2. Absent: gallop, rub Extremities: pulses intact, No edema, normal color, Full ROM - Gastrointestinal General gastrointestinal: Present: soft, non-tender, non-distended, normal bowel sounds - Integumentary Integumentary: clear, warm, dry - Musculoskeletal Musculoskeletal: 1, strength equal bilaterally - Neurologic Neurologic: moves all extremities - Psychiatric Psychiatric: memory intact, appropriate mood/affect, intact judgment & insight - Constitutional Vitals: Vital Signs - 12hr 07/25/18 07/25/18 07/25/18 04:50 05:08 05:16 Temperature 98.2 F Pulse Rate 92 H Respiratory 20 18 Rate Blood Pressure 147/88 Blood Pressure 147/88 [Right] 0207/25/18 07/25/18 06:16 07:24 11:09 Temperature 98.3 F Pulse Rate 95 H Respiratory 18 18 20 Rate Blood Pressure Blood Pressure 147/98 [Right] 07/25/18 11:10 Temperature Pulse Rate Respiratory 20 Rate Blood Pressure Blood Pressure [Right] - Labs CBC & Chem 7: 07/22/18 01:40 07/23/18 15:54
[2018-07-25] MEDS: NORCO 5/325 PO PRN (20:32)
[2018-07-26] MEDS ORDERED: LASIX PO SCH (06:00)
[2018-07-26] MEDS: NORCO 5/325 PO PRN (06:15)
[2018-07-26] MEDS: LASIX PO SCH (06:16)
--- NOTE | 2018-07-26 09:46 | Event Note ---
Date: 07/26/18 The patient has a nonischemic cardiomyopathy and requires guideline directed medical therapy including an Nikolas or ARB, beta blockers, and a loop diuretic and spironolactone, and low-dose aspirin. Some or all of these agents are variously excreted in breast milk, we will recommend that she avoids breast-feeding while on heart failure therapies, unless otherwise advised by her roofing plant supervisor and ethics instructor. Patient is otherwise stable for cardiac discharge with outpatient follow-up in 5-7 days with her primary air operations manager Dr. Dumont.
--- NOTE | 2018-07-26 10:27 | Progress Note ---
Assessment and Plan - Patient Problems (1) Cardiomyopathy Current Visit: Yes Status: Acute Plan to address problem: Started on new cardiac medications today. Therefore will monitor response to medicine for 24-48 hours before discharge. Lisinopril 5mg PO daily Metoprolol 25mg PO BID (previously taking) Lasix 40mg PO daily Spirinolactone 250mg PO daily ASA 81mg PO daily Subjective - Subjective Principal diagnosis: POD #4; s/p Repeat LTCS; Cardiomyopathy, h/o CHF, CHTN Objective - Vital Signs Latest vital signs: Vital Signs Temp Pulse Resp BP BP Pulse Ox 07/26/18 08:06 98.5 F 98 H 20 152/95 100 07/26/18 02:00 99.6 F 108 H 20 150/104 100 07/25/18 22:49 106 H 126/75 07/25/18 16:27 97.5 F L 92 H 18 122/68 07/25/18 11:10 20 07/25/18 11:09 20 Intake and Output 07/25/18 07/26/18 07/26/18 23:59 07:59 15:59 Intake Total 480 Balance 480 Intake: Oral 480 Other: Total, Intake Amount 480
[2018-07-26] MEDS: ALDACTONE PO SCH (10:43)
[2018-07-26] MEDS: PRENATAL VITAMIN PO SCH (10:43)
[2018-07-26] MEDS: FEOSOL PO SCH (10:43)
[2018-07-26] MEDS: ZESTRIL PO SCH (10:44)
[2018-07-26] MEDS: BABY ASPIRIN PO SCH (10:47)
[2018-07-26] MEDS: TOPROL XL PO SCH ×2 (10:50→22:03)
--- NOTE | 2018-07-26 15:24 | Progress Note ---
Assessment and Plan (1) CHF (congestive heart failure) Onset Date: 07/21/18 Current Visit: Yes Status: Chronic Qualifiers: Heart failure chronicity: chronic Plan to address problem: s/p One dose of Lasix iv for Pedal edema Now on lasix scheduled dose ECHO showed Ef 35-40% Consulted cardiology, need close outpt followup started on aspirin, BB, ACEI, aldactone by cardiology Recommended abstinence from breast feeding Patient could be discharge with outpt cardiology follow up (2) HTN (hypertension) Current Visit: Yes Status: Chronic Qualifiers: Hypertension type: essential hypertension Qualified Code(s): I10 - Essential (primary) hypertension Plan to address problem: Cont Metoprolol, ACEI (3) Anemia Current Visit: Yes Status: Chronic Qualifiers: Anemia type: iron deficiency Plan to address problem: Cont Ferrous sulfate (4) DVT prophylaxis Current Visit: Yes Status: Acute On SCD's Subjective Date of service: 07/26/18 Principal diagnosis: POD #4; s/p Repeat LTCS; Cardiomyopathy, h/o CHF, CHTN Interval history: pt seen and examined denies any chest pain, denies No LE swelling, tolerating diet Recommended against breast feed Objective - Exam Narrative Exam: There is no fever his blood cultures and other General appearance: Present: no acute distress, well-nourished - EENT Eyes: PERRL, EOM intact ENT: hearing intact, clear oral mucosa Ears: bilateral: normal - Neck Neck: supple, normal ROM - Respiratory Respiratory effort: normal Respiratory: bilateral: CTA - Cardiovascular Rhythm: regular Heart Sounds: Present: S1 & S2. Absent: gallop, rub Extremities: pulses intact, No edema, normal color, Full ROM - Gastrointestinal General gastrointestinal: Present: soft, non-tender, non-distended, normal bowel sounds - Integumentary Integumentary: clear, warm, dry - Musculoskeletal Musculoskeletal: 1, strength equal bilaterally - Neurologic Neurologic: moves all extremities - Psychiatric Psychiatric: memory intact, appropriate mood/affect, intact judgment & insight - Constitutional Vitals: Vital Signs - 12hr 07/26/18 07/26/18 07/26/18 08:06 10:43 10:44 Temperature 98.5 F Pulse Rate 98 H 111 H 111 H Respiratory 20 Rate Blood Pressure 152/95 155/108 155/108 O2 Sat by Pulse 100 Oximetry 07/26/18 07/26/18 10:50 12:28 Temperature 98.2 F Pulse Rate 111 H 99 H Respiratory 20 Rate Blood Pressure 155/108 147/96 O2 Sat by Pulse 96 Oximetry - Labs CBC & Chem 7: 07/22/18 01:40 07/23/18 15:54
[2018-07-26] MEDS: IBUPROFEN PO PRN (18:19)
[2018-07-27] MEDS: IBUPROFEN PO PRN ×2 (00:15→06:03)
[2018-07-27] MEDS: LASIX PO SCH (06:03)
[2018-07-27] MEDS: PRENATAL VITAMIN PO SCH (10:24)
[2018-07-27] MEDS: FEOSOL PO SCH (10:24)
[2018-07-27] MEDS: TOPROL XL PO SCH (10:25)
[2018-07-27] MEDS: ZESTRIL PO SCH (10:25)
[2018-07-27] MEDS: BABY ASPIRIN PO SCH (10:26)
[2018-07-27] MEDS: ALDACTONE PO SCH (10:26)
--- NOTE | 2018-07-27 14:31 | Progress Note ---
Assessment and Plan (1) CHF (congestive heart failure) Onset Date: 07/21/18 Current Visit: Yes Status: Chronic Qualifiers: Heart failure chronicity: chronic Plan to address problem: s/p One dose of Lasix iv for Pedal edema Now on lasix scheduled dose ECHO showed Ef 35-40% Consulted cardiology, need close outpt followup started on aspirin, BB, ACEI, aldactone by cardiology Recommended abstinence from breast feeding Patient could be discharge with outpt cardiology follow up (2) HTN (hypertension) Current Visit: Yes Status: Chronic Qualifiers: Hypertension type: essential hypertension Qualified Code(s): I10 - Essential (primary) hypertension Plan to address problem: Cont Metoprolol, ACEI (3) Anemia Current Visit: Yes Status: Chronic Qualifiers: Anemia type: iron deficiency Plan to address problem: Cont Ferrous sulfate (4) DVT prophylaxis Current Visit: Yes Status: Acute On SCD's Subjective Date of service: 07/27/18 Principal diagnosis: POD #4; s/p Repeat LTCS; Cardiomyopathy, h/o CHF, CHTN Interval history: pt seen and examined denies any chest pain, denies SOB No LE swelling, tolerating diet Recommended against breast feed Plan for d/c today Objective - Constitutional Vitals: Vital Signs - 12hr 07/27/18 07/27/18 07/27/18 06:05 08:11 10:25 Temperature 98.3 F 98.3 F Pulse Rate 90 97 H 94 H Respiratory 20 20 Rate Blood Pressure 138/76 142/97 142/78 O2 Sat by Pulse 97 100 Oximetry 07/27/18 10:26 Temperature Pulse Rate 94 H Respiratory Rate Blood Pressure 142/78 O2 Sat by Pulse Oximetry - Labs CBC & Chem 7: 07/22/18 01:40 07/23/18 15:54
[2018-07-27 15:53] VITALS: BP 128/69
--- NOTE | 2018-07-27 16:07 | Progress Note ---
Assessment and Plan - Patient Problems (1) 38 weeks gestation of Onset Date: 07/21/18 Current Visit: Yes Status: Resolved (2) S/P repeat low transverse Current Visit: Yes Status: Acute Plan to address problem: Patient to follow with Dr. Crystal on 08/01/18 for wound check. (3) Cardiomyopathy Current Visit: Yes Status: Acute Plan to address problem: Patient is cleared for discharge by gate keeper. She will continue lasix, lisinopril, spironolactone, toprol. She will follow with cardiology Dr. Dumont in one week. (4) H/O congestive heart failure Current Visit: Yes Status: Acute (5) Anemia Current Visit: Yes Status: Chronic Qualifiers: Anemia type: iron deficiency Plan to address problem: Continue iron. (6) Uterine fibroid Current Visit: No Status: Chronic Qualifiers: Uterine leiomyoma location: intramural and submucous Qualified Code(s): D25.1 - Intramural leiomyoma of uterus; D25.0 - Submucous leiomyoma of uterus Subjective - Subjective Date of service: 07/27/18 Principal diagnosis: POD #4; s/p Repeat LTCS; Cardiomyopathy, h/o CHF, CHTN Interval history: Patient is a 33 year old who is S/P C/section. She has a history of cardiomyopathy with her last . After her C/section, she developed SOB and edema. Cardiology consult was done. Workup with Echo and EKG was done. She was started on lasix, spironolactone, toprol, lisinopril. Today, she denies any complaint. She is moving her bowel. Objective - Vital Signs Latest vital signs: Vital Signs Temp Pulse Resp BP Pulse Ox 07/27/18 12:55 98.7 F 95 H 24 128/69 97 07/27/18 10:26 94 H 142/78 07/27/18 10:25 94 H 142/78 07/27/18 08:11 98.3 F 97 H 20 142/97 100 07/27/18 06:05 98.3 F 90 20 138/76 97 07/27/18 02:21 98.5 F 88 20 137/77 100 07/26/18 22:03 146/90 07/26/18 21:42 96 H 146/90 96 07/26/18 18:19 20 07/26/18 16:18 98.1 F 110 H 20 139/87 99 Intake and Output 07/27/18 07/27/18 07/27/18 07:59 15:59 23:59 Intake Total 120 Balance 120 Intake: Oral 120 Other: Total, Intake Amount 120 # Voids Void 1 - Exam Cardiovascular: Present: Normal S1, Normal S2 Lungs: Present: Clear to auscultation Vulva: both: normal Deep Tendon Reflex Grade: Normal +2
--- NOTE | 2018-07-27 16:16 | Discharge Summary ---
Providers - Providers Date of Admission: 07/21/18 09:57 Date of discharge: 07/27/18 Attending physician: JOHANNA BARKSDALE 07/21/18 14:32 Consult to Physician [CONS] Urgent Comment: Consulting Provider: TOBIAS SAENZ Physician Instructions: Reason For Exam: S/P C Section; history of CHF 07/23/18 12:10 Consult to Physician [CONS] Routine Comment: Consulting Provider: ANUPAMA FLORES Physician Instructions: Reason For Exam: chf 07/25/18 11:13 Consult to Physician [CONS] Routine Comment: Consulting Provider: ANUPAMA FLORES Physician Instructions: Reason For Exam: chf Primary care physician: JOHANNA BARKSDALE Hospitalization Reason for admission: section, other (CHF, CHTN) Delivery: complications: other (SOB) Discharge diagnosis: IUP at term delivered baby: female Hospital course: Patient is a 33 eyar old who was admitted on 07/21/18 at 38 weeks for repeat C/section due to CHF. Her course was significant for SOB and edema on postop day#2. Cardiology consult was done. She had echo which showed EF of 35-40%. She was started on lasix, aldactone, toprol, losinopril. her symptoms resolved. She has been ambulating without any respiratory complaint. She is tolerating regular diet well. [facility] cleared her for discharge home today. She hsa appointment to follow up with Dr. Dumont in one week and with Dr. Carlos Barksdale for wound check. Condition at discharge: Stable Disposition: [id number] TO HOME OR SELFCARE - Discharge Diagnoses (1) 38 weeks gestation of Status: Resolved (2) S/P repeat low transverse Status: Acute (3) Cardiomyopathy Status: Acute (4) H/O congestive heart failure Status: Acute (5) Anemia Status: Chronic Qualifiers: Anemia type: iron deficiency (6) Uterine fibroid Status: Chronic Qualifiers: Uterine leiomyoma location: intramural and submucous Qualified Code(s): D25.1 - Intramural leiomyoma of uterus; D25.0 - Submucous leiomyoma of uterus Plan - Discharge Medications Prescriptions: Ferrous Sulfate [Feosol 325 MG tab] 325 mg PO BID #60 tablet Furosemide [Lasix] 40 mg PO BID #60 tablet HYDROcodone/APAP 5-325 [Soldier 5/325] 1 each PO Q6HR PRN #30 tablet PRN Reason: Pain Ibuprofen [Motrin] 800 mg PO Q8HR PRN #30 tablet PRN Reason: Moder Pain Unrelieved By Soldier Ibuprofen 800 mg PO Q8HR #30 tablet Lisinopril [Prinivil] 5 mg PO QDAY #30 tablet Metoprolol Succinate [Toprol Xl] 25 mg PO BID #60 tab.er.24h oxyCODONE /ACETAMINOPHEN [Percocet 5/325] 1 tab PO Q4HR #14 tab Pnv No.95/Ferrous Fum/Folic AC [Prenavite Tablet] 1 each PO DAILY #30 tablet Spironolactone 25 mg PO QDAY #30 tablet - Provider Discharge Summary Activity: no sex for 6 weeks, no heavy lifting 4 weeks, no strenuous exercise Diet: routine Instructions: routine Additional instructions: [] Smoking cessation referral if applicable(refer to patient education folder f or contact #) [] Refer to [facility]'s [facility] Booklet Call your doctor immediately for: * Fever > 100.5 * Heavy vaginal bleeding ( >1 pad per hour) * Severe persistent headache * Shortness of breath * Reddened, hot, painful area to leg or breast * Drainage or odor from incision. * Keep incision clean and dry at all times and follow doctor's instructions regarding bathing/showering - Follow up plan Follow up: JOHANNA BARKSDALE MD [Primary Care Provider] - 7 Days Forms: [facility] Discharge Summary
== END 2018-07-27 17:05 | disposition home or self-care (01) | DRG 786 ==
LOC: APU 09:57 → OB 15:46
PROVIDERS: ADMIT Obstetrics & Gynecology; ATTEND Obstetrics & Gynecology
PROC: 10D00Z1 Extraction of Products of Conception, Low, Open Approach (ICD-10-PCS; principal; 2018-07-21)
PROC: 3E0234Z Introduction of Serum, Toxoid and Vaccine into Muscle, Percutaneous Approach (ICD-10-PCS; 2018-07-22)
DX: O34.211 Maternal care for low transverse scar from previous cesarean delivery (principal); O99.42 Diseases of the circulatory system complicating childbirth; I42.0 Dilated cardiomyopathy; O34.13 Maternal care for benign tumor of corpus uteri, third trimester; O10.12 Pre-existing hypertensive heart disease complicating childbirth; F17.200 Nicotine dependence, unspecified, uncomplicated; D25.1 Intramural leiomyoma of uterus; O99.52 Diseases of the respiratory system complicating childbirth; I11.0 Hypertensive heart disease with heart failure; O99.334 Smoking (tobacco) complicating childbirth; O99.62 Diseases of the digestive system complicating childbirth; D25.0 Submucous leiomyoma of uterus; D50.9 Iron deficiency anemia, unspecified; O99.03 Anemia complicating the puerperium; E66.01 Morbid (severe) obesity due to excess calories; O99.214 Obesity complicating childbirth; J45.909 Unspecified asthma, uncomplicated; K21.9 Gastro-esophageal reflux disease without esophagitis; I50.9 Heart failure, unspecified; O69.81X0 Labor and delivery complicated by cord around neck, without compression, not applicable or unspecified; Z3A.38 38 weeks gestation of pregnancy; Z37.0 Single live birth; Z90.89 Acquired absence of other organs; Z88.5 Allergy status to narcotic agent; Z88.1 Allergy status to other antibiotic agents; Z91.040 Latex allergy status; Z82.49 Family history of ischemic heart disease and other diseases of the circulatory system; Z23 Encounter for immunization
CPT/HCPCS: 36415; 59025; 80053; 85014; 85018; 85025; 86706; 86850; 86900; 86901; 93306; 96360; 96361; 96374; 96375; G0378; A6250; C9250; J1170; J1580; J1885; J1940; J2370; J2405; J2590; J2765; J3010; J7120; J7121; Q0169